=== PATIENT | female | born 1950 | race Caucasian/White ===

== ENCOUNTER 2017-11-13 09:27 | Inpatient (IN) | payer MEDICARE, BC ==
[~2017-11-13 09:27] MED LIST: Advair Hfa 230-12 GM; CELE200 PO; COQ1050 MG PO; DONE10 PO; ESCI20 PO; GLUC500 PO; IBUP600 PO; LISI20 PO; LOPE2EL PO; MONT10T PO; OPTIFLEX-C400 MG PO; TOPI100 PO
[2017-11-13 10:29] LABS: Hematocrit 29.4 % (33.0-51.0); Hemoglobin 10.1 g/dL (11.5-16.0); Mean Corpuscular HGB 29.5 pg (26.0-34.0); Mean Corpuscular HGB Conc 34.4 g/dL (31.5-36.5); Mean Corpuscular Volume 86 fL (80-100); Platelet Count 115 K/mm3 (150-400); RDW Coefficient Variation 13.1 % (11.7-14.2); RDW Standard Deviation 40.5 fL (35.1-46.3); Red Blood Cell Count 3.42 M/mm3 (3.80-5.20); White Blood Cell Count 11.91 K/mm3 (4.00-11.30)
[2017-11-13 10:36] LABS: Albumin, Blood 2.5 g/dL (3.4-5.0); Albumin/Globulin Ratio 0.7 (0.8-1.8); Bilirubin, Total 0.6 mg/dL (0.1-1.0); Bun/Creatinine Ratio 15.8 (12.0-20.0); Calcium, Blood 8.1 mg/dL (8.5-10.1); Creatinine, Blood 2.6 mg/dL (0.40-1.00); Globulin, Blood 3.5 g/dL (2.2-4.0)
[2017-11-13 11:01] LABS: BAND PERCENT MAN 9 % (0-8); BASOPHILS PERCENT MAN 0 % (0-2); EOSINOPHILS PERCENT MAN 0 % (0-6); LYMPHOCYTES ABSOLUTE MAN 0.35 K/mm3 (0.84-5.20); LYMPHOCYTES PERCENT MAN 3 % (21-46); MONOCYTES ABSOLUTE MAN 0.11 K/mm3 (0.16-1.47); MONOCYTES PERCENT MAN 1 % (4-13); NEUTROPHILS ABSOLUTE MAN 11.43 K/mm3 (1.96-9.15); SEG NEUTROPHILS PERCENT MAN 87 % (41-73); TOTAL CELLS COUNTED 100
[2017-11-13 11:07] LABS: Influenza A Negative (NEGATIVE); Influenza B Negative (NEGATIVE)
[2017-11-13 12:17] LABS: Bilirubin, Urine Neg (Neg); Blood, Urine 3+ (Neg); Glucose Qualitative, Urine Neg (Neg); Ketones, Urine Neg (Neg); Leukocyte Esterase, Urine 2+ (Neg); Nitrite, Urine Neg (Neg); Protein, Urine 2+ (Neg); Urobilinogen, Urine NORM (Normal)
[2017-11-13 12:24] LABS: Appearance, Urine Hazy (Clear); Color, Urine Yellow (P-Yellow)
[2017-11-13 12:26] LABS: Amorphous Light (0-Heavy); Red Blood Cells, Urine 0-2 /hpf (0-2); Squamous Epithelial Cells Rare /hpf (Few)
[2017-11-13 12:27] LABS: Bacteria Mod /hpf
[2017-11-13 12:37] LABS: U Amphetamine Screen Not Detected; U Barbituate Screen Not Detected; U Benzodiazapine Screen Not Detected; U Buprenorphine Screen Not Detected; U Cannabinoids Screen Not Detected; U Cocaine Screen Not Detected; U Methadone Screen Not Detected; U Methamphetamine Screen Not Detected; U Opiates Screen Not Detected; U Oxycodone Screen Not Detected; U Phencyclidine Screen Not Detected; U Propoxyphene Screen Not Detected
[2017-11-14 05:13] LABS: Bun/Creatinine Ratio 14.3 (12.0-20.0); Calcium, Blood 7.8 mg/dL (8.5-10.1); Creatinine, Blood 1.82 mg/dL (0.40-1.00); Potassium, Blood 3.6 mmol/L (3.5-5.5)
[2017-11-14] MEDS ORDERED: KRILL OIL500 MG PO (13:14)
[2017-11-14] MEDS ORDERED: VITAMIN B125000 MCG PO (13:14)
[2017-11-14] MEDS ORDERED: TRIPLE FLEX CA1 EACH PO (13:15)
[2017-11-14] MEDS ORDERED: TURMERIC500 M2 PO (13:15)
[2017-11-14] MEDS ORDERED: [UNRECOGNIZED DRUG - OTHER] (13:16)
[2017-11-14] MEDS ORDERED: CELE200 PO (13:16)
[2017-11-14] MEDS ORDERED: Hair, Skin & N1 EACH PO (13:16)
[2017-11-14] MEDS ORDERED: POTCHL20ER PO (13:17)
[2017-11-15 05:09] LABS: Bun/Creatinine Ratio 13.2 (12.0-20.0); Calcium, Blood 7.8 mg/dL (8.5-10.1); Creatinine, Blood 1.29 mg/dL (0.40-1.00); Potassium, Blood 3.6 mmol/L (3.5-5.5)
[2017-11-16] MEDS ORDERED: CEFU250T47 PO (10:55)
[2018-01-31] MEDS ORDERED: LOPE2C (10:33)
[2018-01-31] MEDS ORDERED: TOPI25 (10:33)
[2018-09-02] MEDS ORDERED: Flomax0.4 MG PO (22:03)
[2018-09-02] MEDS ORDERED: Percocet 5-3251 EACH PO (22:03)
[2018-09-02] MEDS ORDERED: ONDA4ODT MM (22:03)
== END 2017-11-16 12:34 | disposition home or self-care (01) | DRG 872 ==
LOC: ER 09:27 → MEDS 14:23
PROVIDERS: Emergency Medicine; Internal Medicine; Urology
PROC: BT1F1ZZ Fluoroscopy of Left Kidney, Ureter and Bladder using Low Osmolar Contrast (ICD-10-PCS; 2017-11-15)
PROC: 0T778DZ Dilation of Left Ureter with Intraluminal Device, Via Natural or Artificial Opening Endoscopic (ICD-10-PCS; principal; 2017-11-15 13:30)
DX: A41.9 Sepsis, unspecified organism (principal); N17.9 Acute kidney failure, unspecified; N13.6 Pyonephrosis; B96.20 Unspecified Escherichia coli [E. coli] as the cause of diseases classified elsewhere; E11.9 Type 2 diabetes mellitus without complications; E86.0 Dehydration; E87.6 Hypokalemia; I10 Essential (primary) hypertension; F41.9 Anxiety disorder, unspecified; F32.9 Major depressive disorder, single episode, unspecified; M19.90 Unspecified osteoarthritis, unspecified site; G47.30 Sleep apnea, unspecified; R19.7 Diarrhea, unspecified; G89.29 Other chronic pain; M54.9 Dorsalgia, unspecified; Z79.899 Other long term (current) drug therapy; Z91.011 Allergy to milk products; Z88.0 Allergy status to penicillin; Z91.018 Allergy to other foods
CPT/HCPCS: 36415; 74018; 74022; 74176; 80048; 80053; 81001; 83690; 85025; 87077; 87086; 87186; 87804; 93005; 93010; 96361; 96374; 96375; 99285; C1729; C1769; C2617; J0696; J1100; J1644; J2250; J2405; J3010; J7030; J7120

== ENCOUNTER 2018-06-13 21:01 | Emergency (ER) | payer MEDICARE ==
[~2018-06-13] VITALS: Ht 165.1 cm; Wt 81.7 kg
[~2018-06-13 21:01] MED LIST changes: +CEFU250T47 PO; +Hair, Skin & N1 EACH PO; +KRILL OIL500 MG PO; +LOPE2C; +POTCHL20ER PO; +TOPI25; +TRIPLE FLEX CA1 EACH PO; +TURMERIC500 M2 PO; +VITAMIN B125000 MCG PO; +[UNRECOGNIZED DRUG - OTHER]
[2018-06-13 21:34] LABS: BASOPHILS ABSOLUTE AUTO 0.04 K/mm3 (0.00-0.23); BASOPHILS PERCENT AUTO 0 % (0-2); EOSINOPHILS ABSOLUTE AUTO 0.04 K/mm3 (0.00-0.68); EOSINOPHILS PERCENT AUTO 0 % (0-6); Hematocrit 40.2 % (33.0-51.0); Hemoglobin 13.8 g/dL (11.5-16.0); IMMATURE GRAN ABSOLUTE AUTO 0.03 K/mm3 (0.00-0.10); IMMATURE GRAN PERCENT AUTO 0 % (0-1); LYMPHOCYTES ABSOLUTE AUTO 1.46 K/mm3 (0.84-5.20); LYMPHOCYTES PERCENT AUTO 16 % (21-46); MONOCYTES ABSOLUTE AUTO 0.54 K/mm3 (0.16-1.47); MONOCYTES PERCENT AUTO 6 % (4-13); Mean Corpuscular HGB 30.9 pg (26.0-34.0); Mean Corpuscular HGB Conc 34.3 g/dL (31.5-36.5); Mean Corpuscular Volume 90 fL (80-100); Mean Platelet Volume 10.2 fL (9.1-12.4); NEUTROPHILS ABSOLUTE AUTO 7.28 K/mm3 (1.96-9.15); NEUTROPHILS PERCENT AUTO 78 % (41-73); Platelet Count 253 K/mm3 (150-400); RDW Coefficient Variation 11.9 % (11.7-14.2); RDW Standard Deviation 39.5 fL (35.1-46.3); Red Blood Cell Count 4.46 M/mm3 (3.80-5.20); White Blood Cell Count 9.39 K/mm3 (4.00-11.30)
[2018-06-13 21:50] LABS: Alanine Aminotransfer (ALT/SGP 24 U/L (12-78); Albumin, Blood 4.2 g/dL (3.4-5.0); Albumin/Globulin Ratio 1.1 (0.8-1.8); Alk Phos 97 U/L (50-136); Anion Gap 7 mmol/L (6-16); Aspartate Aminotrans (AST/SGOT 21 U/L (12-37); Bilirubin, Total 0.5 mg/dL (0.1-1.0); Blood Urea Nitrogen 15 mg/dL (8-24); Bun/Creatinine Ratio 19.2 (12.0-20.0); CO2, Blood 27 mmol/L (21-32); Calcium, Blood 9.4 mg/dL (8.5-10.1); Chloride, Blood 104 mmol/L (98-108); Creatinine, Blood 0.78 mg/dL (0.40-1.00); Globulin, Blood 3.7 g/dL (2.2-4.0); Glomerular Filtration Rate >60 (60-); Glucose, Blood 127 mg/dL (70-99); Potassium, Blood 3.6 mmol/L (3.5-5.5); Sodium, Blood 138 mmol/L (136-145); Total Protein, Blood 7.9 g/dL (6.4-8.2)
[2018-06-14 00:21] LABS: Source, Urine Clean Catch
[2018-06-14 00:27] LABS: Bilirubin, Urine Neg (Neg); Blood, Urine 1+ (Neg); Glucose Qualitative, Urine Neg (Neg); Ketones, Urine Neg (Neg); Leukocyte Esterase, Urine 1+ (Neg); Nitrite, Urine Neg (Neg); Protein, Urine 1+ (Neg); Specific Gravity, Urine 1.025 (1.003-1.022); Urobilinogen, Urine NORM (Normal)
[2018-06-14 00:33] LABS: Appearance, Urine Clear (Clear); Color, Urine Yellow (P-Yellow); Red Blood Cells, Urine 0-2 /hpf (0-2)
[2018-06-14 00:34] LABS: Bacteria Mod /hpf; Calcium Oxalate Crystals Few /hpf; Mucus Light (0-Heavy); Squamous Epithelial Cells Mod /hpf (Few)
[2018-06-14] MEDS ORDERED: Zofran Odt4 MG PO (00:56)
== END 2018-06-14 01:05 | disposition home or self-care (01) ==
LOC: ER 21:01
PROVIDERS: Emergency Medicine
DX: R11.2 Nausea with vomiting, unspecified (principal); R19.7 Diarrhea, unspecified; E86.0 Dehydration
CPT/HCPCS: 36415; 80053; 81001; 83690; 85025; 96361; 96374; 99284-25; J2405; J7030

== ENCOUNTER → 2019-02-25 | Outpatient (CLI) | payer MEDICARE ==
[~2019-02-25] MED LIST changes: +Flomax0.4 MG PO; +ONDA4ODT MM; +Percocet 5-3251 EACH PO; +Zofran Odt4 MG PO
[2019-02-26 18:23] LABS: Adenovirus F 40/41 Not Detected (NOT DETECT); Astrovirus Not Detected (NOT DETECT); Campylobacter Sp Not Detected (NOT DETECT); Cryptosporidium Not Detected (NOT DETECT); Cyclospora Cayetanensis Not Detected (NOT DETECT); E. Coli O157 Not Detected (NOT DETECT); Entamoeba Histolytica Not Detected (NOT DETECT); Enteroaggregative E. coli-EAEC Not Detected (NOT DETECT); Enteropathogenic E. coli-EPEC Not Detected (NOT DETECT); Enterotoxigenic E. coli-ETEC Not Detected (NOT DETECT); Giardia Lamblia Not Detected (NOT DETECT); Norovirus GI/GII Not Detected (NOT DETECT); Plesiomonas Shigelloides Not Detected (NOT DETECT); Rotavirus A Not Detected (NOT DETECT); Salmonella Sp Not Detected (NOT DETECT); Sapovirus Not Detected (NOT DETECT); Shiga Toxin-prod E. coli-STEC Not Detected (NOT DETECT); Shigella/Enteroin E. coli-EIEC Not Detected (NOT DETECT); Vibrio Cholerae Not Detected (NOT DETECT); Vibrio Sp Not Detected (NOT DETECT); Yersinia Enterocolitica Not Detected (NOT DETECT)
== END | disposition home or self-care (01) ==
LOC: LAB EV 10:00
PROVIDERS: Family Medicine
DX: R19.7 Diarrhea, unspecified (principal)
CPT/HCPCS: 87507

== ENCOUNTER → 2021-04-07 | Outpatient (CLI) | payer MEDICARE | LOC: LAB SHORT 16:31 | DX: N39.0 Urinary tract infection, site not specified (principal) | CPT/HCPCS: 87077; 87086; 87186 ==

== ENCOUNTER → 2021-04-18 | Outpatient (CLI) | payer MEDICARE | LOC: LAB SHORT 14:20 | DX: N39.0 Urinary tract infection, site not specified (principal); Z88.0 Allergy status to penicillin; Z91.011 Allergy to milk products; Z91.018 Allergy to other foods | CPT/HCPCS: 87077; 87086; 87186 ==

== ENCOUNTER → 2021-06-02 | Outpatient (CLI) | payer MEDICARE | END | disposition home or self-care (01) | LOC: LAB EV 16:43 → LAB SHORT 16:43 | DX: N12 Tubulo-interstitial nephritis, not specified as acute or chronic (principal) | CPT/HCPCS: 87077; 87086; 87186 ==

== ENCOUNTER → 2023-03-29 | Outpatient (CLI) | payer MEDICARE | END | disposition home or self-care (01) | LOC: LAB SHORT 14:00 → LAB 14:00 | DX: N39.0 Urinary tract infection, site not specified (principal) | CPT/HCPCS: 87086; 87147 ==

== ENCOUNTER 2024-06-18 09:09 | Day surgery (SDC) | payer MEDICARE ==
[~2024-06-18] VITALS: Ht 167.6 cm; Wt 79.7 kg
[~2024-06-18 09:09] MED LIST changes: +BUPR150ER PO; +Crestor40 MG PO; +Lactated Ringer's 1,000 ML IV ONE; +MELO7.5 PO; +propofoL 50 ML IV ONE
[2024-06-18] MEDS ORDERED: MELATONIN5 M1 PO (09:41)
[2024-06-18] MEDS ORDERED: Lactated Ringer's 1,000 ML IV ONE (10:14)
--- NOTE | 2024-06-18 11:14 | NUR ---
06/18/24 1114 BRIANA KENT VS MONITOR TURNED OFF 10 MIN INTO CASE COULD NOT RECOVER DATA- PT STABLE FROM BEGINNING OF EXAM UNTIL 1108. END NOTE
[2024-06-18 12:22] VITALS: BP 129/83
--- NOTE | 2024-06-18 12:26 | NUR ---
06/18/24 1226 BRIANA KENT IV DCD IN ENDO 1 POSTPROCEDURE.
== END 2024-06-18 12:21 | disposition home or self-care (01) ==
LOC: ORSCSDS 09:09
PROVIDERS: Internal Medicine Gastroenterology
PROC: 0DBN8ZX Excision of Sigmoid Colon, Via Natural or Artificial Opening Endoscopic, Diagnostic (ICD-10-PCS; principal; 2024-06-18 11:30)
PROC: 0DBE8ZX Excision of Large Intestine, Via Natural or Artificial Opening Endoscopic, Diagnostic (ICD-10-PCS; principal; 2024-06-18 11:30)
PROC: 0DBK8ZX Excision of Ascending Colon, Via Natural or Artificial Opening Endoscopic, Diagnostic (ICD-10-PCS; principal; 2024-06-18 11:30)
PROC: 0DBM8ZX Excision of Descending Colon, Via Natural or Artificial Opening Endoscopic, Diagnostic (ICD-10-PCS; principal; 2024-06-18 11:30)
PROC: 0DBL8ZX Excision of Transverse Colon, Via Natural or Artificial Opening Endoscopic, Diagnostic (ICD-10-PCS; principal; 2024-06-18 11:30)
DX: R19.7 Diarrhea, unspecified (principal); D12.2 Benign neoplasm of ascending colon; D12.3 Benign neoplasm of transverse colon; D12.4 Benign neoplasm of descending colon; D12.5 Benign neoplasm of sigmoid colon; K57.30 Diverticulosis of large intestine without perforation or abscess without bleeding; Z86.010 Personal history of colon polyps; G47.33 Obstructive sleep apnea (adult) (pediatric)
CPT/HCPCS: 88305; J2704; J7120

== ENCOUNTER 2024-07-14 10:52 | Day surgery (SDC) | payer MEDICARE ==
[2024-07-14] VITALS (14 sets, daily range): BP systolic 96–150; BP diastolic 49–92
[~2024-07-14] VITALS: Ht 167.6 cm; Wt 80.4 kg
[~2024-07-14 10:52] MED LIST changes: +Acetaminophen 500 MG Tab PO SCH; +CeFAZolin Sodium 2,000 MG in NS 100 ML IV SCH; +Chlorhexidine Mouth Care 15 ML UDC MT SCH; -Lactated Ringer's 1,000 ML IV ONE; +Lactated Ringer's 1,000 ML IV SCH; +MELATONIN5 M1 PO; +OxyCODONE HCL 10 MG TABCR PO SCH; +Ropivacaine 0.5% HCl/Pf 123.125 MG,EPINEPHrine HCL 0.25 MG,Ketorolac Tromethamine 15 MG... INFIL SCH; +Tranexamic Acid 100 ML IV SCH; -propofoL 50 ML IV ONE
[2024-07-14] MEDS ORDERED: propofoL 100 ML IV ONE (12:59)
[2024-07-14] MEDS ORDERED: Midazolam HCl 1MG / ML 2ML Vial ONE (13:00)
--- NOTE | 2024-07-14 13:05 | NUR ---
PRE-OP NOTE PT A&OX4, BREATHING RA, CALM, NO COMPLAINTS, AT BEDSDIE. Ambulatory in Day Surgery Patient confirms NPO status and agrees with scheduled surgery. Pre-Op teaching done. Pt verbalizes understanding.PT TO SURGERY C HEARING AIDS- [employer]BER OTHER RANKS AWARE . SEND BACK WITH LABELED CUP IF NEEDED.
[2024-07-14] MEDS ORDERED: Magnesium Hydroxide Conc 10 ML UDC PO PRN (15:40)
[2024-07-14] MEDS ORDERED: Lactated Ringer's 1,000 ML IV SCH (15:40)
[2024-07-14] MEDS ORDERED: HYDROmorphone HCl/Pf 1MG SYR IV PRN (15:40)
[2024-07-14] MEDS ORDERED: Metoclopramide HCl 5MG / ML 2ML Vial IV PRN (15:40)
[2024-07-14] MEDS ORDERED: Bisacodyl 10 MG Supp PR PRN (15:45)
[2024-07-14] MEDS ORDERED: OxyCODONE HCL 5 MG TAB PO PRN ×2 (15:45)
[2024-07-14] MEDS ORDERED: Ondansetron HCl 2 MG / ML 2ML Vial IV PRN (15:45)
[2024-07-14] MEDS ORDERED: Promethazine HCl 25 MG Tab PO PRN (15:45)
[2024-07-14] MEDS ORDERED: DiphenhydrAMINE HCL 25 MG Cap PO PRN (15:50)
[2024-07-14] MEDS ORDERED: FLU VACC TS2024-25(6MOS UP)/PF 45 MCG/0.5 ML SYRINGE IM SCH (15:50)
[2024-07-14] MEDS ORDERED: Acetaminophen 500 MG Tab PO SCH (16:00)
--- NOTE | 2024-07-14 16:10 | NUR ---
POST OP ARRIVAL TO SURGICAL UNIT ALERT, PLEASANT, & UPBEAT. DENIES N/V; SNACKS GIVEN. ASSESSMENT CHARTED. SPOUSE AT SIDE.
[2024-07-14] MEDS ORDERED: Ketorolac Tromethamine 15mg Vial IV SCH (18:00)
[2024-07-14] MEDS ORDERED: CeFAZolin Sodium 2,000 MG in NS 100 ML IV SCH (21:00)
[2024-07-14] MEDS ORDERED: Docusate Sodium 100 MG Cap PO SCH (21:00)
[2024-07-15 03:00] VITALS: BP 110/86
[2024-07-15 05:07] LABS: BASOPHILS ABSOLUTE AUTO 0.04 K/mm3 (0.00-0.23); BASOPHILS PERCENT AUTO 0 % (0-2); EOSINOPHILS ABSOLUTE AUTO 0.13 K/mm3 (0.00-0.68); EOSINOPHILS PERCENT AUTO 1 % (0-6); Hematocrit 32.9 % (33.0-51.0); IMMATURE GRAN ABSOLUTE AUTO 0.03 K/mm3 (0.00-0.10); IMMATURE GRAN PERCENT AUTO 0 % (0-1); LYMPHOCYTES ABSOLUTE AUTO 1.92 K/mm3 (0.84-5.20); LYMPHOCYTES PERCENT AUTO 20 % (21-46); MONOCYTES ABSOLUTE AUTO 0.82 K/mm3 (0.16-1.47); MONOCYTES PERCENT AUTO 9 % (4-13); Mean Corpuscular HGB 30.2 pg (26.0-34.0); Mean Corpuscular HGB Conc 33.4 g/dL (31.5-36.5); Mean Corpuscular Volume 90 fL (80-100); Mean Platelet Volume 10.4 fL (9.1-12.4); NEUTROPHILS ABSOLUTE AUTO 6.73 K/mm3 (1.96-9.15); NEUTROPHILS PERCENT AUTO 70 % (41-73); Platelet Count 198 K/mm3 (150-400); RDW Coefficient Variation 12.3 % (11.7-14.2); RDW Standard Deviation 40.4 fL (35.1-46.3); Red Blood Cell Count 3.64 M/mm3 (3.80-5.20); White Blood Cell Count 9.67 K/mm3 (4.00-11.30)
[2024-07-15 06:31] LABS: Bun/Creatinine Ratio 17.6 (12.0-20.0); Calcium, Blood 8.9 mg/dL (8.5-10.1); Creatinine, Blood 0.85 mg/dL (0.40-1.00)
--- NOTE | 2024-07-15 07:40 | NUR ---
SHIFT SUMMARY POD 1 L TKA. VSS, HOME CPAP IN USE c CONT BIOX. TOLERATING ORALS. VOIDING, ATTENDS IN USE R/T POST-SPINAL INCONT. AMBULATES USING FWW c GB & 1 PERSON ASSIST. PT RESTING IN BED. ASLEEP AT BEDSIDE. AQUACEL C/D/I c POLAR PACK IN USE. PT REPORTS PAIN TOLERABLE, MEDICATED PER EMAR. ANTICIPATED TO WORK WITH PHYSCIAL THERAPY THEN DISCHARGE HOME LATER TODAY. CALL LIGHT IN REACH, BED IN LOWEST POSITION, REPORT GIVEN TO ROBERTO MENDEZ.
[2024-07-15 07:45] VITALS: BP 160/77
[2024-07-15] MEDS ORDERED: Aspirin 81 MG Chew PO SCH (09:00)
[2024-07-15] MEDS ORDERED: ASPI81CH PO (10:01)
[2024-07-15] MEDS ORDERED: ACET500 PO (10:01)
[2024-07-15] MEDS ORDERED: OXYC5 PO (10:02)
--- NOTE | 2024-07-15 10:59 | NUR ---
DISCHARGE POD 1 LTKA PT AMBULATED WELL WITH THERAPY, PAIN WELL CONTROLLED PER EMAR. ALL INSTRUCTIONS GONE OVER WITH PATIENT AND SPOUSE, ALL QUESTIONS ANSWERED. PT TAKEN OUT VIA WHEELCHAIR. ALL BELONGINGS WITH PATIENT. DRESSING CDI. EXTRA AQUACELS SENT WITH PATIENT.
== END 2024-07-15 11:02 | disposition home or self-care (01) ==
LOC: ORSCMMR 10:52 → ORD 13:00 → ORSCMMR 15:15 → SURS 16:00 → ORSCMMR 07-15 11:02 → ORD 08-11 11:00
PROVIDERS: Orthopaedic Surgery
PROC: 0SRD0J9 Replacement of Left Knee Joint with Synthetic Substitute, Cemented, Open Approach (ICD-10-PCS; principal; 2024-07-14 15:15)
DX: M17.12 Unilateral primary osteoarthritis, left knee (principal); I10 Essential (primary) hypertension; E78.5 Hyperlipidemia, unspecified; F41.9 Anxiety disorder, unspecified; F32.A Depression, unspecified; Z79.899 Other long term (current) drug therapy
CPT/HCPCS: 36415; 73560-LT; 80048; 83735; 85025; 94762; 97110; 97116; 97162; 97530; A9270; C1713; C1776; C1887; J0171; J0690; J0735; J1885; J2250; J2704; J2765; J2795; J7120

== ENCOUNTER 2024-08-18 13:45 | Inpatient (IN) | payer OTHER, MEDICARE ==
[~2024-08-18] VITALS: Ht 167.6 cm; Wt 76.7 kg
[~2024-08-18 13:45] MED LIST changes: +ACET500 PO; +ASPI81CH PO; -Acetaminophen 500 MG Tab PO SCH; -CeFAZolin Sodium 2,000 MG in NS 100 ML IV SCH; -Chlorhexidine Mouth Care 15 ML UDC MT SCH; -Lactated Ringer's 1,000 ML IV SCH; +OXYC5 PO; -OxyCODONE HCL 10 MG TABCR PO SCH; -Ropivacaine 0.5% HCl/Pf 123.125 MG,EPINEPHrine HCL 0.25 MG,Ketorolac Tromethamine 15 MG... INFIL SCH; -Tranexamic Acid 100 ML IV SCH
[2024-08-18 15:01] LABS: BASOPHILS ABSOLUTE AUTO 0.04 K/mm3 (0.00-0.23); BASOPHILS PERCENT AUTO 1 % (0-2); EOSINOPHILS ABSOLUTE AUTO 0.18 K/mm3 (0.00-0.68); EOSINOPHILS PERCENT AUTO 2 % (0-6); Hematocrit 37.4 % (33.0-51.0); Hemoglobin 12.5 g/dL (11.5-16.0); IMMATURE GRAN ABSOLUTE AUTO 0.01 K/mm3 (0.00-0.10); IMMATURE GRAN PERCENT AUTO 0 % (0-1); LYMPHOCYTES ABSOLUTE AUTO 1.93 K/mm3 (0.84-5.20); LYMPHOCYTES PERCENT AUTO 26 % (21-46); MONOCYTES ABSOLUTE AUTO 0.77 K/mm3 (0.16-1.47); MONOCYTES PERCENT AUTO 10 % (4-13); Mean Corpuscular HGB 29.8 pg (26.0-34.0); Mean Corpuscular HGB Conc 33.4 g/dL (31.5-36.5); Mean Corpuscular Volume 89 fL (80-100); NEUTROPHILS ABSOLUTE AUTO 4.57 K/mm3 (1.96-9.15); NEUTROPHILS PERCENT AUTO 61 % (41-73); Platelet Count 214 K/mm3 (150-400); RDW Coefficient Variation 13.1 % (11.7-14.2); RDW Standard Deviation 42.9 fL (35.1-46.3); Red Blood Cell Count 4.19 M/mm3 (3.80-5.20)
[2024-08-18 15:21] LABS: Albumin, Blood 3.7 g/dL (3.4-5.0); Bilirubin, Total 0.5 mg/dL (0.1-1.0); Bun/Creatinine Ratio 16.9 (12.0-20.0); Calcium, Blood 9.2 mg/dL (8.5-10.1); Creatinine, Blood 0.89 mg/dL (0.40-1.00); Globulin, Blood 3.6 g/dL (2.2-4.0); Potassium, Blood 3.4 mmol/L (3.5-5.5); Total Protein, Blood 7.3 g/dL (6.4-8.2)
[2024-08-18] MEDS ORDERED: Acetaminophen 325 MG TABLET PO PRN (17:15)
[2024-08-18] MEDS ORDERED: FLU VACC TS2024-25(6MOS UP)/PF 45 MCG/0.5 ML SYRINGE IM SCH (17:15)
[2024-08-18] MEDS ORDERED: Ondansetron HCl 2 MG / ML 2ML Vial IV PRN (17:15)
[2024-08-18] MEDS ORDERED: Ketorolac Tromethamine 15mg Vial IV PRN (17:25)
[2024-08-18] MEDS ORDERED: BUPROPION XL150 M1 PO (17:42)
[2024-08-18] MEDS ORDERED: TRAZ50 PO (17:43)
[2024-08-18] MEDS ORDERED: Melatonin 5 MG Tablet PO PRN (18:35)
[2024-08-18] MEDS ORDERED: OxyCODONE HCL 5 MG TAB PO PRN (18:35)
[2024-08-18 18:44] VITALS: BP 163/116
[2024-08-18] MEDS ORDERED: Potassium Chloride 20 MEQ TabCR PO ONE (19:00)
--- NOTE | 2024-08-18 19:05 | NUR ---
Pt arrived to the room via gourney. A&O x4, vss, PPP, lungs clear in all conner. Was able to get up and pivot to bedside commode and back to bed. Pt declined to put on a hospital gown at this time. Pt resting in bed, respirations even and unlabored. Bed in lowest position, call light within reach. Snacks and water at bedside.
[2024-08-18 19:23] VITALS: BP 172/97
[2024-08-18 19:36] VITALS: BP 169/85
[2024-08-18] MEDS ORDERED: Acetaminophen 500 MG Tab PO PRN (20:20)
[2024-08-18] MEDS ORDERED: ACET500 PO (20:31)
[2024-08-18] MEDS ORDERED: Docusate Sodium 100 MG Cap PO SCH (21:00)
[2024-08-19] VITALS (14 sets, daily range): BP systolic 105–180; BP diastolic 62–118
[2024-08-19 05:06] LABS: BASOPHILS ABSOLUTE AUTO 0.04 K/mm3 (0.00-0.23); BASOPHILS PERCENT AUTO 1 % (0-2); EOSINOPHILS ABSOLUTE AUTO 0.25 K/mm3 (0.00-0.68); EOSINOPHILS PERCENT AUTO 4 % (0-6); Hematocrit 35.1 % (33.0-51.0); Hemoglobin 11.6 g/dL (11.5-16.0); IMMATURE GRAN ABSOLUTE AUTO 0.03 K/mm3 (0.00-0.10); IMMATURE GRAN PERCENT AUTO 0 % (0-1); LYMPHOCYTES PERCENT AUTO 32 % (21-46); MONOCYTES ABSOLUTE AUTO 0.71 K/mm3 (0.16-1.47); MONOCYTES PERCENT AUTO 10 % (4-13); Mean Corpuscular HGB 29.9 pg (26.0-34.0); Mean Corpuscular Volume 91 fL (80-100); Mean Platelet Volume 9.9 fL (9.1-12.4); NEUTROPHILS ABSOLUTE AUTO 3.84 K/mm3 (1.96-9.15); NEUTROPHILS PERCENT AUTO 54 % (41-73); Platelet Count 201 K/mm3 (150-400); RDW Coefficient Variation 12.9 % (11.7-14.2); RDW Standard Deviation 42.4 fL (35.1-46.3); Red Blood Cell Count 3.88 M/mm3 (3.80-5.20); White Blood Cell Count 7.17 K/mm3 (4.00-11.30)
--- NOTE | 2024-08-19 05:18 | NUR ---
SHIFT SUMMARY S/P L HIP FX. PT REFUSING BEDREST ORDER, GETTING OOB SBA TO BSC W/ FWW AND GB. PT HAS BEEN NWB ON L LEG. PT TAKING HOME TYLENOL IT IS "THE ONLY THING THAT WORKS FOR HER", TIMES DOCUMENTED IN EMAR AND OK'D BY NPO SINCE 0000 FOR POSSIBLE SURGERY TODAY. VSS. PT AND SPOUSE REMINDED OF VISITING HOURS BUT PT STATES SHE "DOES NOT FEEL SAFE LEAVING HIM AT HOME" SO SPOUSE STAYED THE NIGHT. PT USING CALL LIGHT APPROPRIATELY.
[2024-08-19 05:41] LABS: Albumin, Blood 3.4 g/dL (3.4-5.0); Bilirubin, Total 0.5 mg/dL (0.1-1.0); Bun/Creatinine Ratio 15.2 (12.0-20.0); Calcium, Blood 8.9 mg/dL (8.5-10.1); Creatinine, Blood 0.85 mg/dL (0.40-1.00); Globulin, Blood 3.3 g/dL (2.2-4.0); Magnesium, Blood 1.9 mg/dL (1.6-2.4); Potassium, Blood 3.8 mmol/L (3.5-5.5); Total Protein, Blood 6.7 g/dL (6.4-8.2)
[2024-08-19] MEDS ORDERED: D5W-1/2NS 1,000 ML IV SCH (08:25)
[2024-08-19] MEDS ORDERED: Rosuvastatin Calcium 10 MG Tab PO SCH (09:00)
[2024-08-19] MEDS ORDERED: propofoL 20 ML IV ONE (13:05)
[2024-08-19] MEDS ORDERED: CeFAZolin Sodium 2,000 MG in NS 100 ML IV SCH (14:30)
[2024-08-19] MEDS ORDERED: Tranexamic Acid 100 ML IV SCH (14:35)
--- NOTE | 2024-08-19 15:10 | NUR ---
PT TRANSPORTED TO OR VIA HOSPITAL BED. PPP. BP RUNNING HYPERTENSIVE, INFORMED OR NURSES OF VITAL SIGNS. A&O X4. PPP. WIGGLES TOES.
[2024-08-19] MEDS ORDERED: Lactated Ringer's 1,000 ML IV SCH (15:15)
[2024-08-19] MEDS ORDERED: Lidocaine HCl 2% 20 ML MDV ONE (16:05)
[2024-08-19] MEDS ORDERED: propofoL 40 ML IV ONE (16:05)
[2024-08-19] MEDS ORDERED: Bupivacaine 0.5% HCl 5 MG/ML 30MLVIAL ONE (16:05)
[2024-08-19] MEDS ORDERED: FentaNYL Citrate 50 MCG/ML 2 ML Injection ONE (16:05)
--- NOTE | 2024-08-19 18:22 | NUR ---
Pt arrived to the floor via hospial bed. PPP. VSS. A&O x4. Pt reports unable to wiggle toes or feel sensation at this time. L hip incision c/d/i covered with aquacel. Snacks and water at bedside. Bed in lowest position. Call light within reach.
--- NOTE | 2024-08-19 18:44 | NUR ---
Shift Summary POD 0 L hip pinning. No acute changes since arrival back to room. Eating and drinking without issue. Pt remains unable to wiggle toes or feel sensation at this time. VSS. PPP. A&O x4. L hip covered with aquacel, c/d/i.
[2024-08-20 00:09] VITALS: BP 152/90
--- NOTE | 2024-08-20 04:18 | NUR ---
SHIFT SUMMARY NO ACUTE CHANGES TO REPORT OVERNIGHT, POD 0 LEFT HIP REPAIR. PT HAS RESTED T/O THE NIGHT. PAIN MANAGED WITH MEDS PER EMAR. SURGICAL SITE WNL. PT IS AMBULATING, VOIDING, AND TOLEARATING PO INTAKE. BED IN LOWEST POSITION, CALL LIGHT WITHIN REACH.
[2024-08-20 04:44] LABS: BASOPHILS ABSOLUTE AUTO 0.04 K/mm3 (0.00-0.23); BASOPHILS PERCENT AUTO 0 % (0-2); EOSINOPHILS ABSOLUTE AUTO 0.16 K/mm3 (0.00-0.68); EOSINOPHILS PERCENT AUTO 2 % (0-6); Hematocrit 35.4 % (33.0-51.0); Hemoglobin 11.7 g/dL (11.5-16.0); IMMATURE GRAN ABSOLUTE AUTO 0.03 K/mm3 (0.00-0.10); IMMATURE GRAN PERCENT AUTO 0 % (0-1); LYMPHOCYTES ABSOLUTE AUTO 2.22 K/mm3 (0.84-5.20); LYMPHOCYTES PERCENT AUTO 23 % (21-46); MONOCYTES ABSOLUTE AUTO 0.91 K/mm3 (0.16-1.47); MONOCYTES PERCENT AUTO 9 % (4-13); Mean Corpuscular HGB 29.5 pg (26.0-34.0); Mean Corpuscular HGB Conc 33.1 g/dL (31.5-36.5); Mean Corpuscular Volume 89 fL (80-100); Mean Platelet Volume 9.9 fL (9.1-12.4); NEUTROPHILS ABSOLUTE AUTO 6.42 K/mm3 (1.96-9.15); NEUTROPHILS PERCENT AUTO 66 % (41-73); Platelet Count 224 K/mm3 (150-400); RDW Coefficient Variation 12.6 % (11.7-14.2); RDW Standard Deviation 41.7 fL (35.1-46.3); Red Blood Cell Count 3.96 M/mm3 (3.80-5.20); White Blood Cell Count 9.78 K/mm3 (4.00-11.30)
[2024-08-20 05:06] LABS: Bun/Creatinine Ratio 16.2 (12.0-20.0); Calcium, Blood 9.5 mg/dL (8.5-10.1); Creatinine, Blood 0.86 mg/dL (0.40-1.00); Potassium, Blood 3.8 mmol/L (3.5-5.5)
[2024-08-20 05:20] VITALS: BP 123/70
[2024-08-20 07:26] VITALS: BP 157/91
--- NOTE | 2024-08-20 11:52 | NUR ---
DISCHARGE PT HAS WORKED w/ THERAPY. PAIN CONTROLLED TO HER SATISFACTION. EATING, DRINKING, & VOIDING WELL. YUE SENT w/ PT. DECLINES GB TO TAKE HOME. ESCORTED OUT VIA W/C.
== END 2024-08-20 11:48 | disposition home or self-care (01) | DRG 482 ==
LOC: ER 13:45 → SURS 13:46 → ER 18:25 → SURS 18:43
PROVIDERS: Emergency Medicine; Internal Medicine; Orthopaedic Surgery; ADMIT Student in an Organized Health Care Education/Training Program
PROC: 0QS704Z Reposition Left Upper Femur with Internal Fixation Device, Open Approach (ICD-10-PCS; principal; 2024-08-19 17:00)
DX: S72.012A Unspecified intracapsular fracture of left femur, initial encounter for closed fracture (principal); G89.29 Other chronic pain; M54.9 Dorsalgia, unspecified; E87.6 Hypokalemia; I12.9 Hypertensive chronic kidney disease with stage 1 through stage 4 chronic kidney disease, or unspecified chronic kidney disease; N18.31 Chronic kidney disease, stage 3a; G25.81 Restless legs syndrome; G47.33 Obstructive sleep apnea (adult) (pediatric); F41.8 Other specified anxiety disorders; Z96.652 Presence of left artificial knee joint; Z88.0 Allergy status to penicillin; Z88.8 Allergy status to other drugs, medicaments and biological substances; Z91.018 Allergy to other foods; V09.9XXA Pedestrian injured in unspecified transport accident, initial encounter
CPT/HCPCS: 36415; 36416; 73502; 80048; 80053; 83735; 85025; 93005; 93010; 94760; 97110; 97116; 97162; 99284-25; A9270; G0378; J0690; J2704; J3010; J7042; J7120

== ENCOUNTER 2024-12-15 05:45 | Day surgery (SDC) | payer BC ==
[2024-12-15] VITALS (16 sets, daily range): BP systolic 99–156; BP diastolic 63–97
[~2024-12-15] VITALS: Ht 167.6 cm; Wt 76.5 kg
[~2024-12-15 05:45] MED LIST changes: +ACET325 PO; +BUPROPION XL150 M1 PO; +CO Q10100 MG PO; +LOPE2C PO; +TRAZ50 PO
[2024-12-15] MEDS ORDERED: Lactated Ringer's 1,000 ML IV SCH ×2 (06:20→08:30)
[2024-12-15] MEDS ORDERED: Tranexamic Acid 100 ML IV SCH (06:20)
[2024-12-15] MEDS ORDERED: CeFAZolin Sodium 2,000 MG in NS 100 ML IV SCH ×2 (06:20→16:00)
[2024-12-15] MEDS ORDERED: Acetaminophen 500 MG Tab PO SCH ×2 (06:20→16:00)
[2024-12-15] MEDS ORDERED: Chlorhexidine Mouth Care 15 ML UDC MT SCH (06:20)
[2024-12-15] MEDS ORDERED: Ropivacaine 0.5% HCl/Pf 123.125 MG,EPINEPHrine HCL 0.25 MG,Ketorolac Tromethamine 15 MG... INFIL SCH (06:20)
[2024-12-15] MEDS ORDERED: OxyCODONE HCL 10 MG TABCR PO SCH (06:20)
[2024-12-15] MEDS ORDERED: Lidocaine HCl 2% 20 ML MDV ONE (06:41)
[2024-12-15] MEDS ORDERED: Dexamethasone Sod Phos 10 MG/ML 1ML VIAL ONE (06:41)
[2024-12-15] MEDS ORDERED: Ondansetron HCl 2 MG / ML 2ML Vial ONE (06:41)
[2024-12-15] MEDS ORDERED: Ketorolac Tromethamine 30mg Vial ONE (06:41)
[2024-12-15] MEDS ORDERED: Dexmedetomidine HCL 200 MCG / 2 ML ONE (06:44)
[2024-12-15] MEDS ORDERED: Bupivacaine 0.5% Inj 10 ML Vial ONE (06:44)
[2024-12-15] MEDS ORDERED: propofoL 0 ML IV ONE (06:44)
[2024-12-15] MEDS ORDERED: Lactated Ringer's 1,000 ML IV ONE (06:51)
[2024-12-15] MEDS ORDERED: FentaNYL Citrate 50 MCG/ML 2 ML Injection ONE (07:20)
[2024-12-15] MEDS ORDERED: ePHEDrine Sulfate 50 MG/ML 1ML Injection ONE (07:56)
[2024-12-15] MEDS ORDERED: Phenylephrine HCl 100 MCG/ML-NS 10MLSYR (1MG/10ML) ONE ×2 (07:56→09:07)
[2024-12-15] MEDS ORDERED: Loperamide HCl 2 MG Cap PO PRN (08:20)
[2024-12-15] MEDS ORDERED: OxyCODONE HCL 5 MG TAB PO PRN ×2 (08:30→08:40)
[2024-12-15] MEDS ORDERED: Ondansetron HCl 2 MG / ML 2ML Vial IV PRN (08:30)
[2024-12-15] MEDS ORDERED: Magnesium Hydroxide Conc 10 ML UDC PO PRN (08:30)
[2024-12-15] MEDS ORDERED: Metoclopramide HCl 5MG / ML 2ML Vial IV PRN (08:30)
[2024-12-15] MEDS ORDERED: Promethazine HCl 25 MG Tab PO PRN (08:35)
[2024-12-15] MEDS ORDERED: Bisacodyl 10 MG Supp PR PRN (08:35)
[2024-12-15] MEDS ORDERED: FLU VACC TS2024-25(6MOS UP)/PF 45 MCG/0.5 ML SYRINGE IM SCH (08:35)
[2024-12-15] MEDS ORDERED: HYDROmorphone HCl/Pf 1MG SYR IV PRN (08:35)
[2024-12-15] MEDS ORDERED: DiphenhydrAMINE HCL 25 MG Cap PO PRN (08:35)
[2024-12-15] MEDS ORDERED: Prochlorperazine Edisylate 10 mg Vial IV PRN (08:40)
[2024-12-15] MEDS ORDERED: Docusate Sodium 100 MG Cap PO SCH (09:00)
--- NOTE | 2024-12-15 10:43 | NUR ---
POST OP ARRIVAL TO SURGICAL UNIT VIA HOPITAL BED. ALERT & AWAKE. ASSESSMENT CHARTED. DENIES N/V; SNACKS & DRINKS GIVEN. AT SIDE. UNABLE TO MOVE BLE BUT CAN WIGGLE TOES.
[2024-12-15] MEDS ORDERED: Ketorolac Tromethamine 15mg Vial IV SCH (12:00)
--- NOTE | 2024-12-15 17:29 | NUR ---
SHIFT SUMMARY WHILE SPINAL LASTED TOO LONG TO WORK w/ THERAPY, HAS STOOD ONCE & ABLE TO TRANSFER TO [facility] x 1 TO VOID, BUT SURGICAL LEG WAS GIVING OUT & SHE REPORTED CONTINUED NUMBNESS TO SURG LEG "LIKE IT's RUBBER". DENIES PAIN OR N/V. SURG SITE WNL.
[2024-12-15] MEDS ORDERED: Rosuvastatin Calcium 10 MG Tab PO SCH (21:00)
[2024-12-16 05:31] LABS: BASOPHILS ABSOLUTE AUTO 0.02 K/mm3 (0.00-0.23); BASOPHILS PERCENT AUTO 0 % (0-2); EOSINOPHILS PERCENT AUTO 0 % (0-6); Hematocrit 29.8 % (33.0-51.0); Hemoglobin 10.6 g/dL (11.5-16.0); IMMATURE GRAN ABSOLUTE AUTO 0.06 K/mm3 (0.00-0.10); IMMATURE GRAN PERCENT AUTO 0 % (0-1); LYMPHOCYTES ABSOLUTE AUTO 1.56 K/mm3 (0.84-5.20); LYMPHOCYTES PERCENT AUTO 10 % (21-46); MONOCYTES ABSOLUTE AUTO 1.68 K/mm3 (0.16-1.47); MONOCYTES PERCENT AUTO 11 % (4-13); Mean Corpuscular HGB 31.2 pg (26.0-34.0); Mean Corpuscular HGB Conc 35.6 g/dL (31.5-36.5); Mean Corpuscular Volume 88 fL (80-100); Mean Platelet Volume 9.9 fL (9.1-12.4); NEUTROPHILS ABSOLUTE AUTO 11.88 K/mm3 (1.96-9.15); NEUTROPHILS PERCENT AUTO 78 % (41-73); Platelet Count 204 K/mm3 (150-400); RDW Standard Deviation 41.7 fL (35.1-46.3)
[2024-12-16 06:12] LABS: Bun/Creatinine Ratio 23.2 (12.0-20.0); Calcium, Blood 8.9 mg/dL (8.5-10.1); Creatinine, Blood 0.86 mg/dL (0.40-1.00); Magnesium, Blood 1.9 mg/dL (1.6-2.4); Potassium, Blood 4.1 mmol/L (3.5-5.5)
--- NOTE | 2024-12-16 06:41 | NUR ---
SHIFT SUMMARY POD 1 L DENG. NO ACUTE CHANGES OVERNIGHT. VSS. TOLERATING ORALS, DENIES NAUSEA. PRINEO C/D/I c POLAR PACK IN USE. PT REPORTS PAIN TOLERABLE, MEDICATED PER EMAR. VOIDING. PT DRESSED, RESETING IN BED c LEs ELEVATED. ANTICIPATED TO WORK c PHYSCIAL THERAPY THEN DISCHARGE HOME LATER TODAY. CALL LIGHT IN REACH, BED IN LOWEST POSITION, REPORT GIVEN TO DAY RN.
[2024-12-16 07:21] VITALS: BP 130/68
[2024-12-16] MEDS ORDERED: buPROPion HCL 150 MG TAB.SR.12H PO SCH (09:00)
[2024-12-16] MEDS ORDERED: Aspirin 81 MG Chew PO SCH (09:00)
--- NOTE | 2024-12-16 10:11 | NUR ---
PT CLEARED BY PHYS. THERAPY, DC INSTRUCTIONS GIVEN, VERBALIZED UNDERSTANDING, BELONGINGS GIVEN BACK TO PT.
== END 2024-12-16 10:00 | disposition home or self-care (01) ==
LOC: ORSCMMR 05:45 → ORD 07:30 → ORSCMMR 07:30 → SURS 10:03 → ORSCMMR 12-16 10:00 → ORD 12-22 09:30
PROVIDERS: Orthopaedic Surgery
PROC: 0QP104Z Removal of Internal Fixation Device from Sacrum, Open Approach (ICD-10-PCS; principal; 2024-12-15 07:30)
PROC: 0SR90JA Replacement of Right Hip Joint with Synthetic Substitute, Uncemented, Open Approach (ICD-10-PCS; principal; 2024-12-15 07:30)
DX: M16.12 Unilateral primary osteoarthritis, left hip (principal); M87.9 Osteonecrosis, unspecified; I10 Essential (primary) hypertension; E11.9 Type 2 diabetes mellitus without complications; G47.33 Obstructive sleep apnea (adult) (pediatric); Z79.899 Other long term (current) drug therapy
CPT/HCPCS: 36415; 72170; 80048; 83735; 85025; 97116; 97162; 97530; A9270; C1713; C1776; J0171; J0690; J0735; J1100; J1885; J2371; J2405; J2704; J2795; J3010; J7120

== ENCOUNTER 2025-05-18 10:22 | Emergency (ER) | payer MEDICARE ==
[~2025-05-18] VITALS: Ht 167.6 cm; Wt 79.4 kg
[2025-05-18 11:00] LABS: BASOPHILS ABSOLUTE AUTO 0.03 K/mm3 (0.00-0.23); BASOPHILS PERCENT AUTO 0 % (0-2); EOSINOPHILS ABSOLUTE AUTO 0.06 K/mm3 (0.00-0.68); EOSINOPHILS PERCENT AUTO 1 % (0-6); Hematocrit 39.0 % (33.0-51.0); Hemoglobin 13.3 g/dL (11.5-16.0); IMMATURE GRAN ABSOLUTE AUTO 0.03 K/mm3 (0.00-0.10); IMMATURE GRAN PERCENT AUTO 0 % (0-1); LYMPHOCYTES ABSOLUTE AUTO 1.73 K/mm3 (0.84-5.20); LYMPHOCYTES PERCENT AUTO 17 % (21-46); MONOCYTES ABSOLUTE AUTO 0.88 K/mm3 (0.16-1.47); MONOCYTES PERCENT AUTO 9 % (4-13); Mean Corpuscular HGB Conc 34.1 g/dL (31.5-36.5); Mean Corpuscular Volume 88 fL (80-100); NEUTROPHILS ABSOLUTE AUTO 7.29 K/mm3 (1.96-9.15); NEUTROPHILS PERCENT AUTO 73 % (41-73); NRBC ABSOLUTE 0.00 K/mm3 (0.00-0.02); NRBC Auto 0.0 /100 WBC (0.0-0.2); Platelet Count 226 K/mm3 (150-400); RDW Coefficient Variation 12.9 % (11.7-14.2); RDW Standard Deviation 41.8 fL (35.1-46.3)
[2025-05-18 11:29] LABS: Alanine Aminotransfer (ALT/SGP 24.0 U/L (12-78); Albumin, Blood 3.9 g/dL (3.4-5.0); Albumin/Globulin Ratio 1.0 (0.8-1.8); Anion Gap 9.0 mmol/L (3-11); Aspartate Aminotrans (AST/SGOT 24.0 U/L (12-37); Bilirubin, Total 0.7 mg/dL (0.1-1.0); Blood Urea Nitrogen 13.0 mg/dL (8-24); CO2, Blood 25.0 mmol/L (21-32); Calcium, Blood 8.8 mg/dL (8.5-10.1); Chloride, Blood 109.0 mmol/L (98-108); Creatinine, Blood 0.9 mg/dL (0.40-1.00); Globulin, Blood 3.9 g/dL (2.2-4.0); Glucose, Blood 111.0 mg/dL (70-99); Potassium, Blood 4.0 mmol/L (3.5-5.5); Sodium, Blood 139.0 mmol/L (136-145); Total Protein, Blood 7.8 g/dL (6.4-8.2)
[2025-05-18 12:15] VITALS: BP 172/92
[2025-05-18] MEDS ORDERED: Acetaminophen/Codeine 300-30 mg PO ONE (12:55)
[2025-05-18] MEDS ORDERED: CODACE30 PO (12:55)
== END 2025-05-18 13:11 | disposition home or self-care (01) ==
LOC: ER 10:22
PROVIDERS: Emergency Medicine
DX: S52.571A Other intraarticular fracture of lower end of right radius, initial encounter for closed fracture (principal); S01.111A Laceration without foreign body of right eyelid and periocular area, initial encounter; I10 Essential (primary) hypertension; Z88.8 Allergy status to other drugs, medicaments and biological substances; Z91.02 Food additives allergy status; Z79.899 Other long term (current) drug therapy; W19.XXXA Unspecified fall, initial encounter
CPT/HCPCS: 29125; 70450; 73110; 80053; 83880; 84484; 85025; 90471; 90715; 93005; 93010; 99284-25; A9270

== ENCOUNTER 2025-05-25 08:24 | Day surgery (SDC) | payer OTHER, MEDICARE ==
[~2025-05-25] VITALS: Ht 167.6 cm; Wt 78.9 kg
[~2025-05-25 08:24] MED LIST changes: +CODACE30 PO
[2025-05-25] MEDS ORDERED: CeFAZolin Sodium 2,000 MG VIAL ONE (08:58)
[2025-05-25] MEDS ORDERED: [UNRECOGNIZED DRUG - OTHER] PO (09:15)
[2025-05-25] MEDS ORDERED: Ipratropium/Albuterol SulF 2.5-0.5MG/3 ML Amp ONE (09:30)
--- NOTE | 2025-05-25 09:36 | NUR ---
05/25/[address] SHOWN EKG STRIP/AWARE OF PVC PT HAS SOME WHEEZES ON EXHALE DUONB ORDERED AND GIVEN 0940
[2025-05-25] MEDS ORDERED: Bupivacaine 0.5% HCl 5 MG/ML 30MLVIAL ONE (10:11)
[2025-05-25] MEDS ORDERED: FentaNYL Citrate 50 MCG/ML 2 ML Injection ONE (10:11)
[2025-05-25] MEDS ORDERED: Midazolam HCl 1MG / ML 2ML Vial ONE (10:11)
[2025-05-25] MEDS ORDERED: Ondansetron HCl 2 MG / ML 2ML Vial ONE (11:01)
[2025-05-25] MEDS ORDERED: Dexamethasone Sod Phos 10 MG/ML 1ML VIAL ONE (11:01)
--- NOTE | 2025-05-25 11:53 | NUR ---
05/25/25 1153 Adri Farias REPORT RECEIVED FROM OSBALDO AND RN. PT ASLEEP UPON ARRIVAL TO PACU. PT CURRENTLY AWAKE AND TALKATIVE. VSS. PT DENIES NAUSEA AND PAIN AT THIS TIME.
[2025-05-25 12:10] VITALS: BP 172/72
--- NOTE | 2025-05-25 12:57 | NUR ---
05/25/25 Staci Willson PT C/O 02/28 PAIN IN R WRIST. PAIN MEDICATION OFFERED TO PATIENT BUT PT DECLINED. PT STATED SHE WILL TAKE SOME OF EITHER THE TYLENOL RAPID RELEASE THAT SHE HAS IN HER CAR OR A TABLET OF TYLENOL WITH CODEINE THAT SHE HAS IN HER CAR. SHE PREFERS NOT TO TAKE ANY PAIN MEDICATION WHILE HERE IN SDU. DR CAICEDO AWARE OF ABOVE.
== END 2025-05-25 12:50 | disposition home or self-care (01) ==
LOC: ORSCSDS 08:24
PROVIDERS: Orthopaedic Surgery
PROC: 0PSH04Z Reposition Right Radius with Internal Fixation Device, Open Approach (ICD-10-PCS; principal; 2025-05-25 10:00)
DX: S52.571A Other intraarticular fracture of lower end of right radius, initial encounter for closed fracture (principal); W01.0XXA Fall on same level from slipping, tripping and stumbling without subsequent striking against object, initial encounter; I10 Essential (primary) hypertension; E78.5 Hyperlipidemia, unspecified; F41.9 Anxiety disorder, unspecified; F32.A Depression, unspecified; Z79.899 Other long term (current) drug therapy
CPT/HCPCS: C1713; J0690; J1100; J2250; J2405; J2704; J3010

== ENCOUNTER → 2025-06-25 | Outpatient (CLI) | payer MEDICARE ==
[~2025-06-25] MED LIST changes: +[UNRECOGNIZED DRUG - OTHER] PO
== END ==
LOC: LAB SHORT 13:00 → LAB 13:00
DX: N20.0 Calculus of kidney (principal)
CPT/HCPCS: 87077; 87086; 87186

== ENCOUNTER 2025-07-28 08:04 | Day surgery (SDC) | payer MEDICARE ==
[~2025-07-28] VITALS: Ht 167.6 cm; Wt 81.7 kg
[~2025-07-28 08:04] MED LIST changes: +Lidocaine 2% Jelly Uro-Jet ONE
[2025-07-28] MEDS ORDERED: CeFAZolin Sodium 2,000 MG VIAL ONE (08:24)
[2025-07-28] MEDS ORDERED: PREVAGEN (08:37)
[2025-07-28] MEDS ORDERED: COQ-10100 MG PO (08:38)
[2025-07-28] MEDS ORDERED: B COMPLEX FORM0.4 MG PO (08:38)
[2025-07-28] MEDS ORDERED: Ondansetron HCl 2 MG / ML 2ML Vial ONE (10:16)
[2025-07-28] MEDS ORDERED: FentaNYL Citrate 50 MCG/ML 2 ML Injection ONE (10:16)
[2025-07-28] MEDS ORDERED: Dexamethasone Sod Phos 10 MG/ML 1ML VIAL ONE (10:16)
[2025-07-28] MEDS ORDERED: Dexmedetomidine HCL 200 MCG / 2 ML ONE (11:00)
[2025-07-28] MEDS ORDERED: Etomidate 2MG / ML 10ML Vial ONE (11:00)
[2025-07-28] MEDS ORDERED: ePHEDrine Sulfate 50 MG/ML 1ML Injection ONE (11:46)
--- NOTE | 2025-07-28 12:02 | NUR ---
07/28/25 1202 Yumiko Drummond [id number] MIXED 1:1 WITH NORMAL SALINE, TOTAL OF 10ML USED.
[2025-07-28 12:22] VITALS: BP 144/83
--- NOTE | 2025-07-28 12:58 | NUR ---
07/28/25 [id number] Ruthann Lindo 3184 PT TO BATHROOM BY CYN D/T FEELING PRESSURE ON BLADDER. EXPLAINED TO PT THERE WILL BE PRESSURE BECAUSE OF THE PROCEDUER. PT UNABLE TO URINATE. BACK TO ROOM BY W/C AND PT UP IN RECLINER DRINKING COFFEE.
== END 2025-07-28 13:07 | disposition home or self-care (01) ==
LOC: ORSCSDS 08:04
PROVIDERS: Urology
PROC: 0T768DZ Dilation of Right Ureter with Intraluminal Device, Via Natural or Artificial Opening Endoscopic (ICD-10-PCS; principal; 2025-07-28 10:00)
PROC: 0TF38ZZ Fragmentation in Right Kidney Pelvis, Via Natural or Artificial Opening Endoscopic (ICD-10-PCS; principal; 2025-07-28 10:00)
DX: N20.0 Calculus of kidney (principal); N23 Unspecified renal colic; E78.5 Hyperlipidemia, unspecified; F41.9 Anxiety disorder, unspecified; F32.A Depression, unspecified; Z79.899 Other long term (current) drug therapy
CPT/HCPCS: C1769; C2617; J0690; J1100; J2405; J2704; J3010; J7120

== ENCOUNTER 2025-07-31 17:00 | Inpatient (IN) | payer MEDICARE ==
[~2025-07-31] VITALS: Ht 162.6 cm; Wt 80.1 kg
[~2025-07-31 17:00] MED LIST changes: +B COMPLEX FORM0.4 MG PO; +COQ-10100 MG PO; -Lidocaine 2% Jelly Uro-Jet ONE; +PREVAGEN
[2025-07-31] MEDS ORDERED: NS 1,000 ML IV SCH ×2 (17:30→18:55)
[2025-07-31] MEDS ORDERED: CefTRIAXone Sodium 1,000 MG in NS 100 ML IV ONE (17:30)
[2025-07-31 18:41] LABS: Alanine Aminotransfer (ALT/SGP 239.0 U/L (12-78); Albumin, Blood 3.3 g/dL (3.4-5.0); Albumin/Globulin Ratio 0.9 (0.8-1.8); Anion Gap 16.0 mmol/L (3-11); Aspartate Aminotrans (AST/SGOT 59.0 U/L (12-37); Bilirubin, Total 1.8 mg/dL (0.1-1.0); Blood Urea Nitrogen 48.0 mg/dL (8-24); CO2, Blood 18.0 mmol/L (21-32); Calcium, Blood 8.3 mg/dL (8.5-10.1); Chloride, Blood 100.0 mmol/L (98-108); Creatinine, Blood 3.08 mg/dL (0.40-1.00); Globulin, Blood 3.6 g/dL (2.2-4.0); Glucose, Blood 127.0 mg/dL (70-99); Potassium, Blood 3.0 mmol/L (3.5-5.5); Sodium, Blood 131.0 mmol/L (136-145); Total Protein, Blood 6.9 g/dL (6.4-8.2)
[2025-07-31 18:54] LABS: Hematocrit 33.0 % (33.0-51.0); Hemoglobin 11.5 g/dL (11.5-16.0); Mean Corpuscular HGB Conc 34.8 g/dL (31.5-36.5); Mean Corpuscular Volume 89 fL (80-100); NRBC ABSOLUTE 0.00 K/mm3 (0.00-0.02); NRBC Auto 0.0 /100 WBC (0.0-0.2); Platelet Count 51 K/mm3 (150-400); RDW Coefficient Variation 13.1 % (11.7-14.2); RDW Standard Deviation 42.9 fL (35.1-46.3)
[2025-07-31 19:17] LABS: BAND PERCENT MAN 7 % (0-8); BASOPHILS ABSOLUTE MAN 0.00 K/mm3 (0.00-0.23); BASOPHILS PERCENT MAN 0 % (0-2); EOSINOPHILS ABSOLUTE MAN 0.00 K/mm3 (0.00-0.68); EOSINOPHILS PERCENT MAN 0 % (0-6); LYMPHOCYTES ABSOLUTE MAN 1.64 K/mm3 (0.84-5.20); LYMPHOCYTES PERCENT MAN 7 % (21-46); MONOCYTES ABSOLUTE MAN 1.64 K/mm3 (0.16-1.47); MONOCYTES PERCENT MAN 7 % (4-13); NEUTROPHILS ABSOLUTE MAN 20.25 K/mm3 (1.96-9.15); SEG NEUTROPHILS PERCENT MAN 79 % (41-73)
[2025-07-31 20:11] LABS: Alanine Aminotransfer (ALT/SGP 183.0 U/L (12-78); Albumin, Blood 2.6 g/dL (3.4-5.0); Albumin/Globulin Ratio 0.9 (0.8-1.8); Anion Gap 12.0 mmol/L (3-11); Aspartate Aminotrans (AST/SGOT 44.0 U/L (12-37); Bilirubin, Total 1.4 mg/dL (0.1-1.0); Blood Urea Nitrogen 48.0 mg/dL (8-24); CO2, Blood 20.0 mmol/L (21-32); Calcium, Blood 7.3 mg/dL (8.5-10.1); Chloride, Blood 102.0 mmol/L (98-108); Creatinine, Blood 2.96 mg/dL (0.40-1.00); Globulin, Blood 3.0 g/dL (2.2-4.0); Glucose, Blood 112.0 mg/dL (70-99); Potassium, Blood 2.8 mmol/L (3.5-5.5); Sodium, Blood 131.0 mmol/L (136-145); Total Protein, Blood 5.6 g/dL (6.4-8.2)
[2025-07-31 20:12] LABS: Source, Urine Clean Catch
[2025-07-31 20:17] LABS: Glucose Qualitative, Urine Neg (Neg); Ketones, Urine Neg (Neg); Leukocyte Esterase, Urine 3+ (Neg); Protein, Urine 3+ (Neg); Specific Gravity, Urine 1.020 (1.003-1.022); Urobilinogen, Urine 1+ (Normal)
[2025-07-31 20:29] LABS: Bilirubin, Urine 1+ (Neg); Color, Urine Yellow (P-Yellow)
[2025-07-31 20:32] LABS: Red Blood Cells, Urine 0-2 /hpf (0-2)
[2025-07-31 20:56] LABS: Fibrinogen 638.0 mg/dL (170-430); Prothrombin Time Results 12.8 Sec (9.7-11.5)
[2025-07-31] MEDS ORDERED: Ondansetron HCl 2 MG / ML 2ML Vial IV PRN (21:10)
[2025-07-31] MEDS ORDERED: Metoprolol Tartrate 1 MG/ML 5 ML VIAL IV PRN (21:15)
[2025-07-31] MEDS ORDERED: FLU VACC TS2025(65UP)/MF59C/PF 45 MCG/0.5 ML SYRINGE IM SCH (21:20)
[2025-07-31 21:23] LABS: Magnesium, Blood 1.8 mg/dL (1.6-2.4)
[2025-07-31 21:34] LABS: Phosphorus, Blood 2.3 mg/dL (2.5-4.9)
[2025-08-01] VITALS (21 sets, daily range): BP systolic 110–151; BP diastolic 59–99
[2025-08-01 01:44] LABS: Alanine Aminotransfer (ALT/SGP 169.0 U/L (12-78); Albumin, Blood 2.6 g/dL (3.4-5.0); Albumin/Globulin Ratio 0.8 (0.8-1.8); Anion Gap 14.0 mmol/L (3-11); Aspartate Aminotrans (AST/SGOT 39.0 U/L (12-37); Bilirubin, Total 1.1 mg/dL (0.1-1.0); Blood Urea Nitrogen 48.0 mg/dL (8-24); CO2, Blood 17.0 mmol/L (21-32); Calcium, Blood 7.1 mg/dL (8.5-10.1); Chloride, Blood 106.0 mmol/L (98-108); Creatinine, Blood 2.38 mg/dL (0.40-1.00); Globulin, Blood 3.1 g/dL (2.2-4.0); Glucose, Blood 126.0 mg/dL (70-99); Magnesium, Blood 1.9 mg/dL (1.6-2.4); Phosphorus, Blood 3.4 mg/dL (2.5-4.9); Potassium, Blood 3.8 mmol/L (3.5-5.5); Sodium, Blood 133.0 mmol/L (136-145); Total Protein, Blood 5.7 g/dL (6.4-8.2)
[2025-08-01 01:49] LABS: Hematocrit 29.8 % (33.0-51.0); Hemoglobin 10.6 g/dL (11.5-16.0); Mean Corpuscular HGB Conc 35.6 g/dL (31.5-36.5); Mean Corpuscular Volume 87 fL (80-100); NRBC ABSOLUTE 0.00 K/mm3 (0.00-0.02); NRBC Auto 0.0 /100 WBC (0.0-0.2); RDW Coefficient Variation 13.4 % (11.7-14.2); RDW Standard Deviation 42.5 fL (35.1-46.3)
[2025-08-01 01:53] LABS: Platelet Count 47 K/mm3 (150-400)
[2025-08-01 02:34] LABS: BAND PERCENT MAN 12 % (0-8); BASOPHILS ABSOLUTE MAN 0.00 K/mm3 (0.00-0.23); BASOPHILS PERCENT MAN 0 % (0-2); EOSINOPHILS ABSOLUTE MAN 0.00 K/mm3 (0.00-0.68); EOSINOPHILS PERCENT MAN 0 % (0-6); LYMPHOCYTES ABSOLUTE MAN 0.87 K/mm3 (0.84-5.20); LYMPHOCYTES PERCENT MAN 4 % (21-46); MONOCYTES ABSOLUTE MAN 1.08 K/mm3 (0.16-1.47); MONOCYTES PERCENT MAN 5 % (4-13); NEUTROPHILS ABSOLUTE MAN 19.81 K/mm3 (1.96-9.15); SEG NEUTROPHILS PERCENT MAN 79 % (41-73)
--- NOTE | 2025-08-01 06:36 | NUR ---
PT MONITORED DURING THE SHIFT,PARTNER STAYED AT BEDSIDE.PT'S OXYGEN SATURATION DROPPED DOWN TO THE 70'S ON RA.PT USES A CPAP AT HOME.PT PLACE ON 2L NC,OXYGEN SATURATION >92% WHILE SLEEPING.PT WIDE AWAKE AT THIS TIME,DENIES PAIN,DENIES NEEDS.CALL LIGHT AND PT'S ITEMS WITHIN REACH.MONITORING ONGOING PER CAREPLAN.
[2025-08-01] MEDS ORDERED: ALEN70 PO (08:31)
[2025-08-01 08:36] LABS: Hematocrit 30.2 % (33.0-51.0); Hemoglobin 10.2 g/dL (11.5-16.0); Mean Corpuscular HGB Conc 33.8 g/dL (31.5-36.5); Mean Corpuscular Volume 90 fL (80-100); NRBC ABSOLUTE 0.00 K/mm3 (0.00-0.02); NRBC Auto 0.0 /100 WBC (0.0-0.2); RDW Coefficient Variation 13.5 % (11.7-14.2); RDW Standard Deviation 44.4 fL (35.1-46.3)
[2025-08-01 08:47] LABS: Platelet Count 45 K/mm3 (150-400)
[2025-08-01 08:49] LABS: Prothrombin Time Results 11.9 Sec (9.7-11.5)
--- NOTE | 2025-08-01 08:52 | NUR ---
AM NOTE: PATIENT ALERT AND ORIENTED X4. PERRLA, WEARING GLASSES. HARD OF HEARING. MOVING ALL EXTREMITIES. OVERALL PATIENT STATES SHE IS FEELING WEAK. BEDREST AT THIS TIME. ABLE TO TURN SELF IN BED. COMPLAINS OF CHRONIC BACK PAIN AND MILD SUPRAPUBIC PAIN. ON ROOM AIR AT THIS TIME SATING ABOVE 95%. LUNG SOUNDS CLEAR AND DIM IN BASES. DENIES SOB/COUGH. EVEN AND UNLABORED RESPIRATIONS. TELE SHOWING SR WITH HR 80'S. DENIES CHEST PAIN/PRESSURE/PALPITATIONS. NO EDEMA NOTED. IV FLUIDS INFUSING PER EMAR. NPO AT THIS TIME. BOWEL TONES PRESENT. DENIES ABDOMINAL PAIN. REPORTS OF INTERMIT NAUSEA. MOUTH SWABS PROVIDED TO HELP WITH MOUTH DRYNESS. PATIENT STATES SHE IS INCONTINENT AT TIMES OF STOOL. ATTENDS IN PLACE. FERRARO CATH IN PLACE DRAINING CLEAR/YELLOW/SIMBA URINE TO GRAVITY. DR. WOODRUFF TO BEDSIDE THIS MORNING. PLAN FOR IR CONSULT, DR. WOODRUFF TO SPEAK WITH DR. JOE. CONSULT ORDERS IN PLACE. SIG OTHER MABEL AT BEDSIDE. CALL LIGHT IN REACH. PATIENT DENIES NEEDS AT THIS TIME.
[2025-08-01 08:56] LABS: BAND PERCENT MAN 3 % (0-8); BASOPHILS ABSOLUTE MAN 0.00 K/mm3 (0.00-0.23); BASOPHILS PERCENT MAN 0 % (0-2); EOSINOPHILS ABSOLUTE MAN 0.00 K/mm3 (0.00-0.68); EOSINOPHILS PERCENT MAN 0 % (0-6); LYMPHOCYTES ABSOLUTE MAN 1.10 K/mm3 (0.84-5.20); LYMPHOCYTES PERCENT MAN 7 % (21-46); MONOCYTES ABSOLUTE MAN 0.62 K/mm3 (0.16-1.47); MONOCYTES PERCENT MAN 4 % (4-13); NEUTROPHILS ABSOLUTE MAN 14.00 K/mm3 (1.96-9.15); SEG NEUTROPHILS PERCENT MAN 86 % (41-73)
[2025-08-01] MEDS ORDERED: Lactobacil 2-S.Thermo-Bifido 1 1 Cap PO SCH (09:00)
[2025-08-01] MEDS ORDERED: Enoxaparin 30 MG/0.3 ML SYR SC SCH (09:00)
--- NOTE | 2025-08-01 10:20 | NUR ---
DR. WOODRUFF TO BEDSIDE TO UPDATE PATIENT ON PLAN OF CARE. THIS RN UPDATED MD ON BLOOD CULTURE RESULTS. BLOOD CULTURE RESULTS ALSO CALLED INTO DR. ZHONG.
[2025-08-01] MEDS ORDERED: MULTIVITAMINS IV ONE (10:40)
[2025-08-01] MEDS ORDERED: NS IV ONE (10:40)
--- NOTE | 2025-08-01 11:30 | NUR ---
DR. HZONG TO BEDSIDE. BLOOD CONSENT SIGNED AND IN CHART. THIS RN PRESENT FOR MD ROUNDING. NO NEW ORDERS FOR THIS RN TO PLACE. PLAN FOR PLATELET INFUSION AT [phone].
[2025-08-01] MEDS ORDERED: NS 250 ML IV PRN (12:40)
--- NOTE | 2025-08-01 14:41 | NUR ---
PLATELET INFUSION COMPELTE. VITAL SIGNS STABLE. RENAL ULTRASOUND COMPLETED AND RESULTS PENDING. PATIENT DENIES NEEDS AT THIS TIME.
--- NOTE | 2025-08-01 15:11 | NUR ---
DR. ZHONG CALLED POST PLATELET INFUSION BY THIS RN TO INQUIRE ABOUT RECHECKING LABS. ORDERS FOR CBC, CMP, PT&INR NOW. ORDERS IN PLACE. THIS RN ALSO UPDATED MD ON PATIENT'S COMPLETED MED REC FOR WHEN PATIENT IS ABLE TO TAKE PO.
[2025-08-01 15:47] LABS: Hematocrit 28.2 % (33.0-51.0); Hemoglobin 9.7 g/dL (11.5-16.0); Mean Corpuscular HGB Conc 34.4 g/dL (31.5-36.5); Mean Corpuscular Volume 88 fL (80-100); NRBC ABSOLUTE 0.00 K/mm3 (0.00-0.02); NRBC Auto 0.0 /100 WBC (0.0-0.2); Platelet Count 63 K/mm3 (150-400); RDW Coefficient Variation 13.3 % (11.7-14.2); RDW Standard Deviation 43.8 fL (35.1-46.3)
[2025-08-01] MEDS ORDERED: NS 500 ML IV ONE (15:55)
[2025-08-01 15:59] LABS: Prothrombin Time Results 11.9 Sec (9.7-11.5)
[2025-08-01 16:06] LABS: Alanine Aminotransfer (ALT/SGP 124.0 U/L (12-78); Albumin, Blood 2.3 g/dL (3.4-5.0); Albumin/Globulin Ratio 0.7 (0.8-1.8); Anion Gap 11.0 mmol/L (3-11); Aspartate Aminotrans (AST/SGOT 32.0 U/L (12-37); Bilirubin, Total 1.0 mg/dL (0.1-1.0); Blood Urea Nitrogen 35.0 mg/dL (8-24); CO2, Blood 20.0 mmol/L (21-32); Calcium, Blood 7.4 mg/dL (8.5-10.1); Chloride, Blood 109.0 mmol/L (98-108); Creatinine, Blood 1.35 mg/dL (0.40-1.00); Globulin, Blood 3.1 g/dL (2.2-4.0); Glucose, Blood 90.0 mg/dL (70-99); Potassium, Blood 3.2 mmol/L (3.5-5.5); Sodium, Blood 137.0 mmol/L (136-145); Total Protein, Blood 5.4 g/dL (6.4-8.2)
[2025-08-01] MEDS ORDERED: NS 1,000 ML IV ONE (16:06)
[2025-08-01] MEDS ORDERED: Midazolam HCl 1MG / ML 2ML Vial ONE (16:06)
[2025-08-01] MEDS ORDERED: FentaNYL Citrate 50 MCG/ML 2 ML Injection ONE (16:06)
[2025-08-01 16:08] LABS: BASOPHILS ABSOLUTE MAN 0.13 K/mm3 (0.00-0.23); BASOPHILS PERCENT MAN 1 % (0-2); EOSINOPHILS ABSOLUTE MAN 0.00 K/mm3 (0.00-0.68); EOSINOPHILS PERCENT MAN 0 % (0-6)
[2025-08-01 16:10] LABS: BAND PERCENT MAN 3 % (0-8); LYMPHOCYTES ABSOLUTE MAN 0.68 K/mm3 (0.84-5.20); LYMPHOCYTES PERCENT MAN 5 % (21-46); MONOCYTES ABSOLUTE MAN 0.55 K/mm3 (0.16-1.47); MONOCYTES PERCENT MAN 4 % (4-13); NEUTROPHILS ABSOLUTE MAN 12.40 K/mm3 (1.96-9.15); SEG NEUTROPHILS PERCENT MAN 87 % (41-73)
--- NOTE | 2025-08-01 16:22 | NUR ---
DR. JOE TO BEDSIDE, CONSENT COMPLETED FOR PROCEDURE. PATIENT LEFT TO HEART CENTER AT 1614. TELE STAFF NOTIFIED.
[2025-08-01] MEDS ORDERED: CefTRIAXone Sodium 1,000 MG in NS 100 ML IV SCH (18:00)
--- NOTE | 2025-08-01 18:24 | NUR ---
PATIENT RETURNS TO ROOM FROM HEART CENTER. RIGHT NEPHROSTOMY TUBE IN PLACE DRAINING CLEAR RED URINE. FERRARO CATH REMAINS INTACK. TEMP RISING, PO TYLENOL GIVEN, ICE PACK PLACED BEHIND NECK, COOL WASHCLOTH PROVIDED ON FOREHEAD AND FAN IN PLACE. TELE REMAINS ST WITH HR 100-110 AT THIS TIME. SBP 130-140'S. DENIES PAIN AT THIS TIME. IV ABX INFUSING. PATIENT DRINKS WATER POST PROCEDURE AND ATE A SMALL AMOUNT OF DINNER. REMAINS ON 2L NASAL CANNULA. AT BEDSIDE. POST PROCEDURE VITALS IN PROGRESS.
[2025-08-01] MEDS ORDERED: Cefepime HCl 2,000 MG in NS 100 ML IV SCH (19:00)
--- NOTE | 2025-08-01 19:27 | NUR ---
DR. ZHONG CALLED AT 1845. THIS RN PROVIDED UPDATE ON RISING TEMP, PO TYLENOL ADMINISTRATION, COMPLETED LR FLUIDS AND NONPHARMALOGICAL INTERVENTIONS TO REDUCE TEMP. ORDERS FOR: MORTIN 400MG PO X1 IF TYLENOL HAS NOT REDUCED FEVER TWO HOURS AFTER ADMINISTRATION, NEW BLOOD CULTURES X2, DISCONTINUE CURRENT CEFTRIAXONE, START IV CEFEPIME PER PHARMACY RENAL DOSING WITH FIRST DOSE NOW, AND GIVE 1 DOSE OF IV VANCOMYCIN PER PHARMACY RENAL DOSING WITH DOSE NOW. PHARMACY CALLED FOR IV ANTIBIOTIC DOSING AND ORDERS PLACED. REPORTED OFF TO [facility] SYDNIE POND RN.
--- NOTE | 2025-08-01 20:47 | NUR ---
ASSUMPTION OF CARE ASSUMED PT'S CARE AT 1900.PT DROWSY,OPENS EYES TO VERBAL COMMAND.PT STATES "I AM NOT JUST FEELING WELL RIGHT NOW".PT'S TEMP 103.5.PARTNER AT BEDSIDE.BEDSIDE REPORT COMPLETED,PLAN OF CARE REVIEWED.BLOOD CULTURES DRAWN BY THE TIE CUTTER,ORDERED IV ANTIBIOTICS INFUSIONS STARTED ORDERED.PT DENIES PAIN,DENIES SOB,DENIES NEEDS AT THIS TIME.CALL LIGHT AND PT'S ITEMS WITHIN REACH.MONITORING ONGOING PER CAREPLAN.
[2025-08-02] VITALS (13 sets, daily range): BP systolic 128–151; BP diastolic 70–98
[2025-08-02 04:08] LABS: BASOPHILS ABSOLUTE AUTO 0.05 K/mm3 (0.00-0.23); BASOPHILS PERCENT AUTO 0 % (0-2); EOSINOPHILS ABSOLUTE AUTO 0.11 K/mm3 (0.00-0.68); EOSINOPHILS PERCENT AUTO 1 % (0-6); Hematocrit 31.0 % (33.0-51.0); Hemoglobin 10.5 g/dL (11.5-16.0); IMMATURE GRAN ABSOLUTE AUTO 0.08 K/mm3 (0.00-0.10); IMMATURE GRAN PERCENT AUTO 1 % (0-1); LYMPHOCYTES ABSOLUTE AUTO 1.44 K/mm3 (0.84-5.20); LYMPHOCYTES PERCENT AUTO 10 % (21-46); MONOCYTES ABSOLUTE AUTO 1.22 K/mm3 (0.16-1.47); MONOCYTES PERCENT AUTO 8 % (4-13); Mean Corpuscular HGB Conc 33.9 g/dL (31.5-36.5); Mean Corpuscular Volume 90 fL (80-100); NEUTROPHILS ABSOLUTE AUTO 11.66 K/mm3 (1.96-9.15); NEUTROPHILS PERCENT AUTO 80 % (41-73); NRBC ABSOLUTE 0.00 K/mm3 (0.00-0.02); NRBC Auto 0.0 /100 WBC (0.0-0.2); Platelet Count 54 K/mm3 (150-400); RDW Coefficient Variation 13.6 % (11.7-14.2); RDW Standard Deviation 44.8 fL (35.1-46.3)
[2025-08-02 04:49] LABS: Alanine Aminotransfer (ALT/SGP 112.0 U/L (12-78); Albumin, Blood 2.3 g/dL (3.4-5.0); Albumin/Globulin Ratio 0.7 (0.8-1.8); Anion Gap 9.0 mmol/L (3-11); Aspartate Aminotrans (AST/SGOT 47.0 U/L (12-37); Bilirubin, Total 0.9 mg/dL (0.1-1.0); Blood Urea Nitrogen 30.0 mg/dL (8-24); CO2, Blood 22.0 mmol/L (21-32); Calcium, Blood 7.8 mg/dL (8.5-10.1); Chloride, Blood 112.0 mmol/L (98-108); Creatinine, Blood 1.04 mg/dL (0.40-1.00); Globulin, Blood 3.2 g/dL (2.2-4.0); Glucose, Blood 100.0 mg/dL (70-99); Magnesium, Blood 2.3 mg/dL (1.6-2.4); Phosphorus, Blood 2.6 mg/dL (2.5-4.9); Potassium, Blood 3.6 mmol/L (3.5-5.5); Sodium, Blood 139.0 mmol/L (136-145); Total Protein, Blood 5.5 g/dL (6.4-8.2)
--- NOTE | 2025-08-02 06:23 | NUR ---
PT MONITORED DURING THE SHIFT.PT REPORTED FEELING BETTER AFTER RECEIVING THE IV ANTIBIOTICS.ONE TIME MOTRIN PO AND PRN TYLENOL GIVEN ONCE OVERNIGHT WAS EFFECTIVE TO BRING DOWN PT'S TEMP TO 97.6.NEPHROSTOMY TUBE PATENT AND DRAINING CLEAR YELLOW URINE.PT CONVERTED TO AFIB AT MIDNIGHT WITH CONTROLLED RATE.SECOND SET OF BLOOD CULTURES RESULTED POSITIVE FOR GRAM NEGATIVE BACILLI, NOTIFIED.PT STILL ASLEEP THIS MORNING,EASILY AROUSABLE.PT WORE 2L OF OXYGEN,REFUSED TO USE THE CPAP.MAINTAINED OXYGEN SATURATION >93%.PT DENIES PAIN,DENIES SOB,DENIES NEEDS AT THIS TIME.CALL LIGHT AND PT'S ITEMS WITHIN REACH.MONITORING ONGOING PER CAREPLAN.
--- NOTE | 2025-08-02 09:31 | NUR ---
AM NOTE: PATIENT ALERT AND ORIENTED. SITTING UP IN BED THIS MORNING. PERRLA, WEARING GLASSES AND RIGHT HEARING AID. REPORTS 5/10 RIGHT FLANK/BACK PAIN. MEDICATED PER EMAR WITH PO TYLENOL. UP WITH 1 PERSON TO CHAIR THIS MORNING FOR BREAKFAST. TITRATED TO ROOM AIR WHILE AWAKE, BUT NEEDING UP TO 2L WHEN SLEEPING. REFUSED CPAP DURING NOC SHIFT. EVEN AND UNLABORED RESPIRATIONS. DENIES SOB/COUGH. TELE SHOWING SR WITH HR 80'S. DENEIS CHEST PAIN/PRESSURE/PALPITATIONS. NO EDEMA NOTED. IV ABX INFUSED THIS AM. BOWEL TONES PRESENT. PATIENT TOLERATING PO DIET. DENIES ABDOMINAL PAIN/NAUSEA. FERRARO CATH DRAINING CLEAR/YELLOW URINE TO GRAVITY. RIGHT NEPHROSTOMY WITH PINK TINGED URINE. NEPHROSTOMY DRESSING C/D/I. SKIN REMAINS C/D/I. AT BEDSIDE. CALL LIGHT IN REACH. DENIES NEEDS AT THIS TIME.
--- NOTE | 2025-08-02 09:50 | NUR ---
DR. ZHONG CALLED AT 0950 TO UPDATED ON RISING TEMP, PATIENT FEELING SYMPTOMATIC OF RISING TEMP, ALREADY ADMINISTERED PO TYLENOL AND QUESTIONS ABOUT HOME MEDS. NO NEW ORDERS FOR THIS RN TO PLACE.
--- NOTE | 2025-08-02 12:42 | NUR ---
DR. ZHONG TO BEDSIDE, THIS RN PRESENT FOR MD ROUNDING. ORDERS TO RESTART HOME BUPROPINE AND ROSUVASTATIN, WELL OXYCODONE 5MG PO Q6 PRN FOR PAIN AND MEDICAL STATUS WITH TELE. ORDERS IN PLACE. THIS RN UPDATED DR. ZHONG ABOUT CONVERSION TO AFIB DURING NOC SHIFT. REMAINS AT BEDSIDE.
--- NOTE | 2025-08-02 17:28 | NUR ---
SHIFT SUMMARY: SEE PREVIOUS NOTES FOR UPDATES THROUGHOUT SHIFT. PATIENT IS IN GOOD SPIRITS THIS EVENING SITTING UP IN BED EATING DINNER WITH AT BEDSIDE. DENIES PAIN AT THIS TIME. REMAINS ON ROOM AIR WHILE AWAKE. EVEN AND UNLABORED RESPIRATIONS. TELE SHOWING SR WITH PVC'S AND HR 60-70'S. DENIES CHEST PAIN/PRESSURE/PALPITATIONS. IV SALINE LOCKED. BOWEL TONES PRESENT. TOLERATING RENAL DIET. ATTENDS IN PLACE. FERRARO CATH CONTINUES TO DRAIN CLEAR/YELLOW URINE. RIGHT NEPHROSTOMY DRAINING PINK TINGED YELLOW URINE. DRESSING REMAINS C/D/I. PATIENT EATING DINNER AT THIS TIME, DENIES NEEDS. CALL LIGHT IN REACH.
--- NOTE | 2025-08-02 19:40 | NUR ---
ASSUMPTION OF CARE ASSUMED PT'S CARE AT 1900,BEDSIDE REPORT COMPLETED.PT SITTING UP IN BED WATCHING TV,PARTNER AT BEDSIDE.PLAN OF CARE REVIEWED.PT'S TEMP 100.2.PT NOT DUE FOR PRN TYLENOL AT THIS TIME.PT DENIES PAIN,DENIES SOB,DENIES CHILLS,DENIES NEEDS.NEPHROSTOMY TUBE PATENT DRAINING PINK TINGED URINE.CALL LIGHT AND PT'S ITEMS WITHIN REACH.MONITORING ONGOING PER CAREPLAN.
[2025-08-03] VITALS: BP 158/82
[2025-08-03 04:13] VITALS: BP 147/87
[2025-08-03 05:00] VITALS: BP 142/90
[2025-08-03 06:27] LABS: Hematocrit 29.4 % (33.0-51.0); Hemoglobin 10.1 g/dL (11.5-16.0); Mean Corpuscular HGB Conc 34.4 g/dL (31.5-36.5); Mean Corpuscular Volume 88 fL (80-100); NRBC ABSOLUTE 0.00 K/mm3 (0.00-0.02); NRBC Auto 0.0 /100 WBC (0.0-0.2); Platelet Count 63 K/mm3 (150-400); RDW Coefficient Variation 13.3 % (11.7-14.2); RDW Standard Deviation 43.3 fL (35.1-46.3)
--- NOTE | 2025-08-03 06:42 | NUR ---
PT MONITORED DURING THE SHIFT.PT WAS AWAKE MOST OF THE SHIFT.PT OFFERED PRN PAIN MED SEVERAL TIMES BUT SHE REFUSED.PT ACCEPTED TO TAKE PRN PAIN MEDICINE AT 0422,FELL ASLEEP SHORTLY AFTER.TMAX 100.5,PRN TYLENOL GIVEN ORDERED.TEM 99.6 THIS MORNING.PT SLEEPING AT THIS TIME,EASILY AROUSABLE.PT DENIES PAIN,DENIES SOB,DENIES NEEDS.NEPHROSTOMY TUBE PATENT DRAINING PINK URINE.FERRARO DRAINING YELLOW URINE.CALL LIGHT AND PT'S ITEMS WITHIN REACH.MONITORING ONGOING PER CAREPLAN.
[2025-08-03 06:43] LABS: Alanine Aminotransfer (ALT/SGP 84.0 U/L (12-78); Albumin, Blood 2.2 g/dL (3.4-5.0); Albumin/Globulin Ratio 0.7 (0.8-1.8); Anion Gap 10.0 mmol/L (3-11); Aspartate Aminotrans (AST/SGOT 28.0 U/L (12-37); Bilirubin, Total 1.1 mg/dL (0.1-1.0); Blood Urea Nitrogen 17.0 mg/dL (8-24); CO2, Blood 24.0 mmol/L (21-32); Calcium, Blood 8.4 mg/dL (8.5-10.1); Chloride, Blood 107.0 mmol/L (98-108); Creatinine, Blood 0.85 mg/dL (0.40-1.00); Globulin, Blood 3.3 g/dL (2.2-4.0); Glucose, Blood 108.0 mg/dL (70-99); Magnesium, Blood 1.6 mg/dL (1.6-2.4); Phosphorus, Blood 2.8 mg/dL (2.5-4.9); Potassium, Blood 3.1 mmol/L (3.5-5.5); Sodium, Blood 138.0 mmol/L (136-145); Total Protein, Blood 5.5 g/dL (6.4-8.2)
[2025-08-03 07:08] LABS: BAND PERCENT MAN 3 % (0-8); BASOPHILS ABSOLUTE MAN 0.00 K/mm3 (0.00-0.23); BASOPHILS PERCENT MAN 0 % (0-2); EOSINOPHILS ABSOLUTE MAN 0.00 K/mm3 (0.00-0.68); EOSINOPHILS PERCENT MAN 0 % (0-6); LYMPHOCYTES % ATYPICAL MANUAL 1 % (0-0); LYMPHOCYTES ABSOLUTE MAN 0.40 K/mm3 (0.84-5.20); LYMPHOCYTES PERCENT MAN 2 % (21-46); MONOCYTES ABSOLUTE MAN 0.53 K/mm3 (0.16-1.47); MONOCYTES PERCENT MAN 4 % (4-13); MYELOCYTE ABSOLUTE MAN 0.13 K/mm3 (0.00-0.00); MYELOCYTE PERCENT MAN 1 % (0-0); NEUTROPHILS ABSOLUTE MAN 12.30 K/mm3 (1.96-9.15); SEG NEUTROPHILS PERCENT MAN 89 % (41-73)
--- NOTE | 2025-08-03 08:14 | NUR ---
ASSUMPTION NOTE: THIS RN TO ASSUME CARE OF PATIENT. PATIENT IS AWAKE AND EATING BREAKFAST. PATIENT BLOOD PRESSURE ELVATED AND TO RECEIVE MORNING MEDICATIONS. ASKED FOR MORE COFFEE & WAITING FOR MD TO ROUND. VITAL SIGNS STABLE PATIENT HAS CALL LIGHT WITHIN REACH, BED IN LWOEST LOCKED POSITION & STATING NOTHING ELSE IS NEEDED AT THIS TIME.
[2025-08-03 08:18] VITALS: BP 155/84
--- NOTE | 2025-08-03 12:00 | NUR ---
MD ROUNDED: MD ROUNDED & SPOKE WITH PATIENT AND AT BEDSIDE. THIS RN NOTIFIED MD REGARDING POTASSIUM LAB LOW & MD GAVE VERBAL ORDER TO REPLACE ORAL WITH 40MEQ,ORDER WAS PLACED. PT & OT WAS ORDERED WELL. THIS RN TO SPEAK WITH UROLOGY REGARDING PLAN PATIENT ASKED TO GO HOME. PATIENT IS NOW MEDICAL WITH TELE STATUS AND AWARE OF THAT. PATIENT HAS CALL LIGHT WIHTIN REACH, BED IN LOWEST LOCKED POSITION & STATING NOTHING ELSE IS NEEDED AT THIS TIME.
--- NOTE | 2025-08-03 14:37 | NUR ---
MD CONTACTED: THIS RN CONTACTED MD REGARDING PATIENT UPDATE AFTER TALKING TO UROLOGY. OKAY TO TRIAL PATIENT TO GET FERRARO REMOVED & LOOKING AT POSSIBLE DISCHARGE TOMORROW. UROGLOY TO GET PATIENT SCHEDULED TO FOLLOW UP OUTPATIENT UPON DISCHARGE. PATIENT TO GET A CT DONE TOMORROW PRIOR TO DISCHARGE TO SEE MOVEMENT OF STONE.
[2025-08-03 15:55] VITALS: BP 144/82
--- NOTE | 2025-08-03 18:32 | NUR ---
SHIFT SUMMARY: PATIENT IS ALERT AND ORIETNED X4 & COOPERATIVE WITH HER CARE AT MOST TIMES. PATIENT HESITATNT AT TIMES DUE TO BEING IN MILD PAIN BUT DENIED ANY PAIN MEDICATIONS. PATIENT SATTING >92% ON ROOM AIR. WORKED WITH [facility] TODAY AND THEY OFFERED HOME HEALTH, PATIENT TO BE A STAND BY ASSIST WITH FRONT WHEELED WALKER FOR STABILITY. AT BEDSIDE. PATIENT WAS GIVEN TYLENOL THROUGHOUT SHIFT FOR SOME MILD PAIN & FERRARO WAS TAKEN OUT AFTER BEING BLADDER TRAINED. PATIENT WAS NOTIFIED THAT UROLOGY WOULD LIKE TO FOLLOW UP WITH HER OUTPATIENT & PATIENT EXPRESSED SHE PREFFERED TO HAVE IT SURGICALLY REMOVED. GAVE DOWN AND SPOKE WITH HER REGARDING THAT NOT BEING A POSSIBILY AT THIS TIME. PATIENT CURRENTLY RESINT IN BED,CALL LIGHT WITHIN REACH, BED IN LOWEST LOCKED POSITION,EVEN & UNLABORED RESPIRATIONS & STATING NOTHING ELSE IS NEEDED AT THIS TIME.
[2025-08-03 21:24] VITALS: BP 154/96
[2025-08-04 01:10] VITALS: BP 144/69
[2025-08-04 04:39] LABS: BASOPHILS ABSOLUTE AUTO 0.06 K/mm3 (0.00-0.23); BASOPHILS PERCENT AUTO 0 % (0-2); EOSINOPHILS ABSOLUTE AUTO 0.16 K/mm3 (0.00-0.68); EOSINOPHILS PERCENT AUTO 1 % (0-6); Hematocrit 31.8 % (33.0-51.0); Hemoglobin 11.1 g/dL (11.5-16.0); Mean Corpuscular HGB Conc 34.9 g/dL (31.5-36.5); Mean Corpuscular Volume 88 fL (80-100); NRBC ABSOLUTE 0.00 K/mm3 (0.00-0.02); NRBC Auto 0.0 /100 WBC (0.0-0.2); Platelet Count 84 K/mm3 (150-400); RDW Coefficient Variation 13.4 % (11.7-14.2); RDW Standard Deviation 43.6 fL (35.1-46.3)
[2025-08-04 04:50] LABS: IMMATURE GRAN ABSOLUTE AUTO 0.28 K/mm3 (0.00-0.10); IMMATURE GRAN PERCENT AUTO 2 % (0-1); LYMPHOCYTES ABSOLUTE AUTO 2.32 K/mm3 (0.84-5.20); LYMPHOCYTES PERCENT AUTO 15 % (21-46); MONOCYTES ABSOLUTE AUTO 1.23 K/mm3 (0.16-1.47); MONOCYTES PERCENT AUTO 8 % (4-13); NEUTROPHILS ABSOLUTE AUTO 11.01 K/mm3 (1.96-9.15); NEUTROPHILS PERCENT AUTO 73 % (41-73)
[2025-08-04 05:22] LABS: Anion Gap 8.0 mmol/L (3-11); Blood Urea Nitrogen 14.0 mg/dL (8-24); CO2, Blood 25.0 mmol/L (21-32); Calcium, Blood 8.8 mg/dL (8.5-10.1); Chloride, Blood 106.0 mmol/L (98-108); Creatinine, Blood 0.85 mg/dL (0.40-1.00); Glucose, Blood 137.0 mg/dL (70-99); Magnesium, Blood 1.7 mg/dL (1.6-2.4); Phosphorus, Blood 3.5 mg/dL (2.5-4.9); Potassium, Blood 3.3 mmol/L (3.5-5.5); Sodium, Blood 136.0 mmol/L (136-145)
[2025-08-04 05:52] VITALS: BP 170/88
[2025-08-04 06:03] VITALS: BP 153/83
[2025-08-04] MEDS ORDERED: FentaNYL Citrate 50 MCG/ML 2 ML Injection IV PRN (06:25)
--- NOTE | 2025-08-04 07:29 | NUR ---
SHIFT SUMMARY: PT IS A&OX4, CACHIL DEHE, COOPERATIVE WITH CARE. PT RAMBLES ON AND IS SOMETIMES DIFFICULT TO UNDERSTAND WHAT HER NEEDS ARE. BP ELEVATED, 154/96 ON RA. PT DESATURATED INTO THE 80'S WHILE ASLEEP, PLACED PT ON 2L OXYGEN VIA OXYMASK. SR 60'S-80'S. C/O 9/10 PAIN ACROSS HER LOW BACK, MEDICATED PER EMAR WITH LITTLE RELIEF. TOLERATING A RENAL DIET. SBA WITH FWW TO BR. VOIDING ADEQUATE AMOUNTS OF DARK YELLOW URINE. R NEPHROSTOMY TUBE DRAINING LARGE AMOUNTS OF URINE. DRESSING TO NEPHROSTOMY TUBE, C/D/I. NO BM THIS SHIFT. PULL-UP IN PLACE. BED IN LOWEST POSITION, CALL LIGHT WITHIN REACH. PT'S AT BEDSIDE T/O THE NIGHT. THIS RN REMINDING PT AND HER ON THE USE OF THE CALL LIGHT, AND NOT JUST VENTURING OUT OR HOLLERING OUT TO AN EMPLOYEE WITH NEEDS.
[2025-08-04 08:57] VITALS: BP 139/84
--- NOTE | 2025-08-04 14:45 | NUR ---
UPDATE: PT RETURNED BACK TO UNIT VIA W/C FROM IMAGING @9242.
[2025-08-04] MEDS ORDERED: METO25 PO (15:36)
[2025-08-04] MEDS ORDERED: CIPR500 PO (15:37)
[2025-08-04] MEDS ORDERED: PROBIOTIC1 EA13 PO (15:37)
--- NOTE | 2025-08-04 16:32 | NUR ---
PT D/C AT APPROX 1610, ALL BELONGINGS RETURNED TO PT. VSS.
[2025-08-05 12:52] LABS: VITAMIN B2 11 nmol/L (5-50)
== END 2025-08-04 16:20 | disposition home health service (06) | DRG 871 ==
LOC: ER 17:00 → PCU 21:08 → ERHOLD 21:08 → PCU 21:08
PROVIDERS: Emergency Medicine; Family Medicine; Internal Medicine; Urology; ADMIT Student in an Organized Health Care Education/Training Program
PROC: 0T9B70Z Drainage of Bladder with Drainage Device, Via Natural or Artificial Opening (ICD-10-PCS; 2025-07-31)
PROC: 3E03329 Introduction of Other Anti-infective into Peripheral Vein, Percutaneous Approach (ICD-10-PCS; 2025-07-31)
PROC: 0TP9XDZ Removal of Intraluminal Device from Ureter, External Approach (ICD-10-PCS; 2025-07-31)
PROC: 0T9330Z Drainage of Right Kidney Pelvis with Drainage Device, Percutaneous Approach (ICD-10-PCS; principal; 2025-08-01)
PROC: BT111ZZ Fluoroscopy of Right Kidney using Low Osmolar Contrast (ICD-10-PCS; 2025-08-01)
PROC: 30233R1 Transfusion of Nonautologous Platelets into Peripheral Vein, Percutaneous Approach (ICD-10-PCS; 2025-08-01)
DX: A41.51 Sepsis due to Escherichia coli [E. coli] (principal); G92.8 Other toxic encephalopathy; N13.6 Pyonephrosis; T83.89XA Other specified complication of genitourinary prosthetic devices, implants and grafts, initial encounter; N17.9 Acute kidney failure, unspecified; R65.20 Severe sepsis without septic shock; I48.0 Paroxysmal atrial fibrillation; E87.6 Hypokalemia; D69.6 Thrombocytopenia, unspecified; F98.8 Other specified behavioral and emotional disorders with onset usually occurring in childhood and adolescence; F41.9 Anxiety disorder, unspecified; G89.4 Chronic pain syndrome; F32.A Depression, unspecified; M79.7 Fibromyalgia; K21.9 Gastro-esophageal reflux disease without esophagitis; E78.5 Hyperlipidemia, unspecified; Y73.2 Prosthetic and other implants, materials and accessory gastroenterology and urology devices associated with adverse incidents; D63.1 Anemia in chronic kidney disease; I12.9 Hypertensive chronic kidney disease with stage 1 through stage 4 chronic kidney disease, or unspecified chronic kidney disease; N18.9 Chronic kidney disease, unspecified; M19.90 Unspecified osteoarthritis, unspecified site; G47.33 Obstructive sleep apnea (adult) (pediatric); E55.9 Vitamin D deficiency, unspecified; M85.80 Other specified disorders of bone density and structure, unspecified site; I95.9 Hypotension, unspecified; R74.8 Abnormal levels of other serum enzymes; K44.9 Diaphragmatic hernia without obstruction or gangrene; E66.9 Obesity, unspecified; Z96.652 Presence of left artificial knee joint; Z96.642 Presence of left artificial hip joint; Z68.27 Body mass index [BMI] 27.0-27.9, adult; Z88.8 Allergy status to other drugs, medicaments and biological substances; Z88.0 Allergy status to penicillin; Z88.5 Allergy status to narcotic agent
CPT/HCPCS: 36415; 36430; 50432; 51702; 71045; 74176; 74177; 76770; 76937; 80048; 80053; 81001; 82607; 82947; 83605; 83735; 84100; 84252; 84484; 85025; 85384; 85610; 85730; 86900; 86901; 87040; 87077; 87086; 87186; 93005; 93010; 93306; 94760; 94762; 96361; 96365; 97112; 97116; 97161; 97165; 97530; 99152; 99153; 99285-25; A9270; C1729; C1769; C1894; J0692; J0696; J2250; J3010; J3373; J3411; J3480; J7030; J7040; J7050; J7120; P9035; Q9967

== ENCOUNTER → 2025-08-20 | Outpatient (CLI) | payer MEDICARE ==
[~2025-08-20] MED LIST changes: +ALEN70 PO; +CIPR500 PO; +METO25 PO; +PROBIOTIC1 EA13 PO
== END ==
LOC: LAB SHORT 12:44 → LAB 12:44
DX: N20.0 Calculus of kidney (principal); Z98.890 Other specified postprocedural states; N30.20 Other chronic cystitis without hematuria
CPT/HCPCS: 87077; 87086; 87186

== ENCOUNTER → 2025-08-24 | Outpatient (CLI) | payer MEDICARE ==
[2025-08-31 13:47] LABS: CALCIUM, URINE - PER 24H 299 mg/d (100-250); CALCIUM, URINE - PER VOLUME 17.6 mg/dL; CHLORIDE, URINE - PER 24H 58 mmol/d (140-250); CHLORIDE, URINE - PER VOLUME 34 mmol/L; CITRIC ACID, URINE - PER 24H 352 mg/d (320-1240); CITRIC ACID,URINE - PER VOLUME 207 mg/L; CREATININE, URINE - PER 24H 1411 mg/d (500-1400); CREATININE, URINE - PER VOLUME 83 mg/dL; HOURS COLLECTED 24 hr; MAGNESIUM, URINE - PER VOLUME 4.2 mg/dL; MAGNESIUM, URINE PER 24H 71 mg/d (12-199); OXALATE, URINE - PER 24H 46 mg/d (13-40); OXALATE, URINE - PER VOLUME 27 mg/L; PHOSPHORUS, URINE - PER 24H 578 mg/d (400-1300); PHOSPHORUS, URINE - PER VOLUME 34 mg/dL; POTASSIUM, URINE - PER 24H 48 mmol/d (25-125); POTASSIUM, URINE - PER VOLUME 28 mmol/L; SODIUM, URINE - PER 24H 66 mmol/d (51-286); SODIUM, URINE - PER VOLUME 39 mmol/L; SULFATE, URINE - PER 24H < 5 mmol/d (6-30); SULFATE, URINE - PER VOLUME <5 mmol/L; URIC ACID, URINE - PER 24H 639 mg/d (250-750); URIC ACID, URINE - PER VOLUME 37.6 mg/dL; URINE SUPERSATURATION INTERP Abnormal; URINE SUPERSATURATION, CAHPO4 4.57; URINE SUPERSATURATION, CAOX 17.06; URINE SUPERSATURATION, UA CALC 0.26
== END ==
LOC: LAB SHORT 22:00 → LAB 22:00
PROVIDERS: Family Medicine
DX: N20.0 Calculus of kidney (principal); N30.20 Other chronic cystitis without hematuria; N30.00 Acute cystitis without hematuria; Z98.890 Other specified postprocedural states
CPT/HCPCS: 81003; 82131; 82140; 82340; 82436; 82507; 82570; 83735; 83935; 83945; 84105; 84133; 84300; 84392; 84560

== ENCOUNTER → 2025-10-01 | Outpatient (CLI) | payer MEDICARE | LOC: LAB SHORT 18:00 → LAB 18:00 | DX: N20.0 Calculus of kidney (principal); N30.20 Other chronic cystitis without hematuria; Z98.890 Other specified postprocedural states | CPT/HCPCS: 87077; 87086; 87186 ==

== ENCOUNTER 2025-10-16 08:06 | Emergency (ER) | payer OTHER, MEDICARE ==
[~2025-10-16] VITALS: Ht 167.6 cm; Wt 74.8 kg
[2025-10-16 08:33] VITALS: BP 149/103
[2025-10-16] MEDS ORDERED: Ketorolac Tromethamine 30mg Vial IM ONE (11:30)
[2025-10-16] MEDS ORDERED: HYDR1TAB94 PO (11:30)
[2025-10-16] MEDS ORDERED: IBUP800 PO (11:30)
== END 2025-10-16 11:53 | disposition home or self-care (01) ==
LOC: ER 08:06
DX: S83.91XA Sprain of unspecified site of right knee, initial encounter (principal); M17.11 Unilateral primary osteoarthritis, right knee; M25.461 Effusion, right knee; W01.0XXA Fall on same level from slipping, tripping and stumbling without subsequent striking against object, initial encounter
CPT/HCPCS: 73562-RT; 96372; 99283-25; J1885